=== PATIENT | female | born 1955 | race Caucasian/White ===

== ENCOUNTER 2016-10-05 22:00 | Emergency (ER) | payer BC ==
[2016-10-05] MEDS ORDERED: Sodium Chloride 0.9% 10 ML Syringe FLUSH PRN (22:04)
[2016-10-05] MEDS ORDERED: Sodium Chloride 0.9% 1,000 ML IV SCH (22:15)
[2016-10-05] MEDS ORDERED: Pantoprazole 40 MG Vial IVPUSH ONE (22:15)
[2016-10-05] MEDS ORDERED: HYDROmorphone 2 MG/ML SDV IVPUSH ONE (23:12)
[2016-10-05] MEDS ORDERED: Ondansetron 4 MG/2 ML SDV IVPUSH ONE (23:13)
[2016-10-06] MEDS ORDERED: HYDROmorphone 2 MG/ML SDV IVPUSH ONE (00:04)
[2016-10-06] MEDS ORDERED: Ketorolac 30 MG/ML SDV IVPUSH ONE (00:05)
[2016-10-06] MEDS ORDERED: Sodium Chloride 0.9% 1,000 ML IV SCH (00:15)
[2016-10-06] MEDS ORDERED: Iopamidol 755 Mg/ML 100 ML Bottle IV SCH (00:45)
--- NOTE | 2016-10-06 01:55 | ER ---
DATE SEEN: 10/05/2016 TIME SEEN: 2200 hours. REASON FOR VISIT: Diarrhea. HISTORY OF PRESENT ILLNESS: This is a 61-year-old female complaining of diarrhea since this morning associated with abdominal cramps and bright red blood per rectum. The started afterwards. Denies fever or chills. PAST MEDICAL HISTORY: 1. Migraine headaches. 2. Hypertension. 3. GERD. SOCIAL HISTORY: Does not drink alcohol or use drugs. REVIEW OF SYSTEMS: No fever, nausea, chest pain, or shortness of breath. ALLERGIES: None. PHYSICAL EXAMINATION: GENERAL: Nontoxic in appearance. VITAL SIGNS: Blood pressure 150/99, temperature 99.4. ENT: Negative. CHEST: Clear. ABDOMEN: Soft, with minimal tenderness to palpation. No rebound or rigidity. RECTAL EXAM: No stool in the rectum. No visible blood, masses, or lesions. LABORATORY DATA: White cell count 17.8, normal platelet count. INR 1.0, sodium 134, and glucose 155. IMPRESSION: 1. Bright red blood per rectum. 2. Abdominal cramps. PLAN: 1 L of normal saline, 80 mg of IV Protonix, 8 mg of Zofran, and 1 mg of Dilaudid were given over the course of an hour and a half. The patient went to the bathroom, but only passed air. I discharged her home to see Dr. Gonzales tomorrow. /[id number] SUGAR/ALCIRA
[2016-10-06 02:33] VITALS: BP 142/86
--- NOTE | 2016-10-06 05:19 | ER ---
DATE SEEN: 10/05/2016 ADDENDUM: ED COURSE: The patient still complained of abdominal cramps and pain even after treatment with IV Dilaudid. I gave her an extra 1 mg of Dilaudid and 30 mg of IV Toradol. She had one bloody stool in the emergency room, but her vital signs remained stable. I ordered for a CT of the abdomen and pelvis with contrast showed some diverticular disease, and colitis, but no obstruction and no signs of diverticulitis. She felt better and I discharged her home at about 0200 hours with strict instructions to be seen later this morning by Dr. Gonzales for strong consideration of C-scope. /[id number] SUGAR/ALCIRA
== END 2016-10-06 02:20 | disposition home or self-care (01) ==
LOC: FB.ED 22:00
DX: K52.9 Noninfective gastroenteritis and colitis, unspecified (principal); K57.91 Diverticulosis of intestine, part unspecified, without perforation or abscess with bleeding; G43.909 Migraine, unspecified, not intractable, without status migrainosus; I10 Essential (primary) hypertension; K21.9 Gastro-esophageal reflux disease without esophagitis
CPT/HCPCS: 36415; 74177; 80053; 82272; 83630; 85025; 85610; 86850; 86900; 86901; 87015; 87045; 87046; 87338; 87899; 96361; 96374; 96375; 96376; 99285; C9113; J1170; J1885; J2405; J7040; J7050; Q9967

== ENCOUNTER 2018-01-06 10:36 | Day surgery (SDC) | payer BC ==
[~2018-01-06 10:36] MED LIST: Lactated Ringers 1,000 ML IV SCH; Sodium Chloride 0.9% 10 ML Syringe FLUSH PRN
[2018-01-06] MEDS ORDERED: Propofol 200 MG/20 ML SDV IV ONE (11:30)
[2018-01-06] MEDS ORDERED: fentaNYL 100 MCG/2 ML SDV IV ONE (11:30)
[2018-01-06] MEDS ORDERED: Midazolam 1 MG/ML 2 ML SDV IV ONE (11:30)
--- NOTE | 2018-01-06 11:51 | PCM.OPNOTE ---
- General Post-Op/Procedure Note Date of Surgery/Procedure: 01/06/18 Operative Procedure(s): egd with bx Findings: gastritis esophagitis Pre Op Diagnosis: hx of gerd dypshagia Post-Op Diagnosis: gastritis esophagitis Anesthesia Technique: [facility] [place] Primary Surgeon: Franco Borjas Anesthesia Provider: Aldo Vidal Pathology: stomach and esophagus Complications: None Condition: Good Free Text/Narrative:: see dictation
[2018-01-06 13:37] VITALS: BP 116/80
--- NOTE | 2018-01-06 14:40 | OR ---
DATE OF OPERATION: 01/06/2018 SURGEON: Franco Borjas MD PROCEDURES PERFORMED: EGD with cold forceps biopsy. PREOPERATIVE DIAGNOSES: Personal history of dysphagia and reflux. POSTOPERATIVE DIAGNOSES: 1. Gastritis. 2. Mild esophagitis. INDICATIONS FOR PROCEDURE: This is a 62-year-old white female who is referred with a history of some swallowing issues. She was offered and accepted an EGD. DESCRIPTION OF PROCEDURE: After an excellent IV sedation was administered, the bite block was inserted. Flexible endoscope was passed without difficulty down the patient's esophagus and into the stomach. The stomach was insufflated. The scope was passed through the pylorus, to the second portion of the duodenum, and slowly withdrawn. The following findings were noted. Duodenum was unremarkable. Stomach demonstrated mild gastritis and biopsies were taken. GE junction measured at 40 cm. Distal esophagus, mild erythema, otherwise unremarkable. The stomach was deflated. The scope was removed. Biopsies were taken of the esophagus and the stomach. /[id number] ELMER/ALCIRA
== END 2018-01-06 12:34 | disposition home or self-care (01) ==
LOC: FB.SDS 10:36
PROVIDERS: ATTEND Surgery
DX: K29.50 Unspecified chronic gastritis without bleeding (principal); K20.9 Esophagitis, unspecified; E03.9 Hypothyroidism, unspecified; M19.049 Primary osteoarthritis, unspecified hand; M79.7 Fibromyalgia; N39.46 Mixed incontinence; J45.909 Unspecified asthma, uncomplicated; F41.9 Anxiety disorder, unspecified; F33.9 Major depressive disorder, recurrent, unspecified; Z79.899 Other long term (current) drug therapy; Z88.1 Allergy status to other antibiotic agents; Z87.891 Personal history of nicotine dependence
CPT/HCPCS: 43239; J2250; J2704; J3010; J7120; 88305; 88342

== ENCOUNTER 2018-08-25 07:04 | Emergency (ER) | payer BC ==
[2018-08-25] MEDS ORDERED: Ketorolac 30 MG/ML SDV IM ONE (07:38)
[2018-08-25] MEDS ORDERED: hydrOXYzine HCl 50 MG/ML SDV IM ONE (07:39)
--- NOTE | 2018-08-25 07:45 | EDM.PDOC ---
ED HPI GENERAL MEDICAL PROBLEM - General Chief Complaint: Headache Stated Complaint: HEAD ACHE Time Seen by Provider: 08/25/18 07:25 Source of Information: Reports: Patient, Old Records History Limitations: Reports: No Limitations - History of Present Illness INITIAL COMMENTS - FREE TEXT/NARRATIVE: Violet comes to [facility] ED with a migraine headache, onset this early am. There is retro-orbital pain that is sharp and throbbing, some light sensitivity, achiness in the neck, nausea, and malaise. She has a PMH of migraine headache, although control has been good over the past 2 years while taking propanolol. Occipital Headache Pain Score (Numeric/FACES): 7 - Related Data Allergies Allergy/AdvReac Type Severity Reaction Status Date / Time No Known Allergies Allergy Verified 08/25/18 08:19 Home Meds: Home Meds Acetaminophen [Tylenol] 325 mg PO ASDIRECTED PRN 11/06/16 [History] Albuterol [Ventolin HFA] 2 puff INH Q4H PRN 11/06/16 [History] Aspirin [Adult Low Dose Aspirin EC] 81 mg PO DAILY 11/06/16 [History] Gabapentin [Neurontin] 300 cap PO ASDIRECTED 11/06/16 [History] Levothyroxine 112 mcg PO ACBREAKFAST 11/06/16 [History] Omeprazole 20 mg PO DAILY 11/06/16 [History] Propranolol [Inderal LA] 180 mg PO BEDTIME 11/06/16 [History] Rizatriptan [Maxalt MOLDED PARTS INSPECTOR] 10 mg PO Q2H PRN MDD 2 11/06/16 [History] Escitalopram [Lexapro] 30 mg PO BEDTIME tablet 04/26/17 [Rx] Sulfamethoxazole/Trimethoprim [Bactrim Ds Tablet] 1 tab PO MOWEFR 08/25/18 [ History] Venlafaxine HCl [Venlafaxine ER] 150 mg PO DAILY 08/25/18 [History] predniSONE [Prednisone] 30 mg PO DAILY 08/25/18 [History] Past Medical History HEENT History: Reports: Other (See Below) Other HEENT History: meibomian gland disease and pinguecula Cardiovascular History: Reports: None, High Cholesterol Respiratory History: Reports: Asthma, Other (See Below) 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: 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 Gastrointestinal History: Reports: Gastritis, GERD, PUD, Other (See Below) Other Gastrointestinal History: gastroduodenitis Genitourinary History: Reports: Renal Calculus, Urinary Incontinence, UTI, Recurrent BODY ARTIST History: Reports: , Other (See Below) Other BODY ARTIST History: OVARIAN CYST REMOVAL Musculoskeletal History: Reports: Arthritis, Back Pain, Chronic, Fibromyalgia, Osteoarthritis Other Musculoskeletal History: hand Neurological History: Reports: Migraines, Vertigo, Other (See Below) Other Neuro History: LEFT FRONTAL LOBE BRAIN LESION Psychiatric History: Reports: Anxiety, Depression Endocrine/Metabolic History: Reports: Hypothyroidism, Obesity/BMI 30+ Hematologic History: Reports: None Immunologic History: Reports: None Oncologic (Cancer) History: Reports: None Dermatologic History: Reports: None - Infectious Disease History Infectious Disease History: Reports: Measles - Past Surgical History Head Surgeries/Procedures: Reports: None HEENT Surgical History: Reports: Other (See Below) Other HEENT Surgeries/Procedures: pterygium ptosis Cardiovascular Surgical History: Reports: None, Coronary Artery Bypass, Coronary Artery Stent Respiratory Surgical History: Reports: None GI Surgical History: Reports: Appendectomy, Cholecystectomy, Colonoscopy Female Surgical History: Reports: Cystoscopy, Lithotripsy/ESWL, Tubal Ligation, Ureteral Stent Neurological Surgical History: Reports: Other (See Below) Other Neurological Surgeries/Procedures: SPINE SURGERY Musculoskeletal Surgical History: Reports: Arthroscopic Knee, Arthroscopic Procedure, Shoulder Surgery Other Musculoskeletal Surgeries/Procedures:: left knee, foot surgery, spinal surgery, L PERONEOUS BREVIS TENDON REPAIR Oncologic Surgical History: Reports: None Dermatological Surgical History: Reports: None Social & Family History - Family History Family Medical History: Noncontributory Cardiac: Reports: High Cholesterol, [place] - Caffeine Use Caffeine Use: Reports: None Caffeine Use Comment: 1 soda every 2 weeks ED ROS GENERAL - Review of Systems Review Of Systems: See Below Constitutional: Reports: Malaise, Decreased Appetite HEENT: Reports: Eye Pain (retro-orbital) Respiratory: Reports: No Symptoms Cardiovascular: Reports: No Symptoms Endocrine: Reports: No Symptoms GI/Abdominal: Reports: Decreased Appetite, Nausea : Reports: No Symptoms Musculoskeletal: Reports: Neck Pain Skin: Reports: No Symptoms Neurological: Reports: Headache Psychiatric: Reports: No Symptoms Hematologic/Lymphatic: Reports: No Symptoms Immunologic: Reports: No Symptoms - Physical Exam Exam: See Below Exam Limited By: No Limitations General Appearance: Alert, WD/WN, Anxious, Mild Distress, Obese Eye Exam: Bilateral Eye: EOMI, Normal Inspection, PERRL Ears: Normal External Exam, Normal TMs Nose: Normal Inspection Throat/Mouth: Normal Inspection, Normal Lips, Normal Oropharynx, Normal Voice, No Airway Compromise Head Exam: Normocephalic Neck: Normal Inspection, Supple, Non-Tender, Full Range of Motion Respiratory/Chest: Lungs Clear, Normal Breath Sounds, Chest Non-Tender Cardiovascular: Normal Peripheral Pulses, Regular Rate, Rhythm, No Edema, No Murmur GI/Abdominal: Normal Bowel Sounds, Soft, Non-Tender, No Organomegaly, No Distention, No Mass (Female) Exam: Deferred Rectal (Female) Exam: Deferred Neuro Exam (Abbreviated): Alert, Oriented, CN II-XII Intact, Normal Cognition, No Motor/Sensory Deficits Back Exam: Normal Inspection Extremities: Normal Inspection Psychiatric: Normal Affect, Anxious Skin Exam: Warm, Dry, Intact, Normal Color Course - Vital Signs Text/Narrative:: Following assessment, I administered Toradol 30 mg IM and Vistaril 50 mg IM. Patient tolerated well. Last Recorded V/S: Last Vital Signs Temp 36.6 C 08/25/18 07:35 Pulse Resp 17 08/25/18 07:35 BP 149/101 H 08/25/18 07:50 Pulse Ox 94 L 08/25/18 07:35 - Orders/Labs/Meds Meds: Medications Discontinued Medications Generic Name Dose Route Start Last Admin Trade Name Freq PRN Reason Stop Dose Admin Hydroxyzine HCl 50 mg 08/25/18 07:39 08/25/18 07:51 Vistaril IM 08/25/18 07:40 50 mg ONETIME ONE Administration Ketorolac Tromethamine 30 mg 08/25/18 07:38 08/25/18 07:52 Toradol IM 08/25/18 07:39 30 mg ONETIME ONE Administration Departure - Departure Time of Disposition: 07:55 Disposition: Home, Self-Care 01 Condition: Fair Clinical Impression: Migraine - Discharge Information *PRESCRIPTION DRUG MONITORING PROGRAM REVIEWED*: Not Applicable *COPY OF PRESCRIPTION DRUG MONITORING REPORT IN PATIENT RICCO: Not Applicable Referrals: Clyde Gonzales MD [Primary Care Provider] - Forms: ED Department Discharge - Problem List & Annotations (1) Migraine SNOMED Code(s): 68828540 Code(s): G43.909 - MIGRAINE, UNSP, NOT INTRACTABLE, WITHOUT STATUS MIGRAINOSUS Status: Acute Onset Date: 12/25/13 Annotation/Comment:: Violet will return home and continue maintenance meds. - Problem List Review Problem List Initiated/Reviewed/Updated: Yes - Assessment/Plan Plan: Follow up with neurologist next Thursday as earlier scheduled.
[2018-08-25 08:18] VITALS: BP 149/101
== END 2018-08-25 07:54 | disposition home or self-care (01) ==
LOC: FB.ED 07:04
DX: G43.909 Migraine, unspecified, not intractable, without status migrainosus (principal); E78.00 Pure hypercholesterolemia, unspecified; J45.909 Unspecified asthma, uncomplicated; F41.9 Anxiety disorder, unspecified; F32.9 Major depressive disorder, single episode, unspecified; E03.9 Hypothyroidism, unspecified; Z79.82 Long term (current) use of aspirin; Z79.899 Other long term (current) drug therapy
CPT/HCPCS: 96372; 99283; J1885; J3410

== ENCOUNTER 2019-06-20 12:23 | Emergency (ER) | payer BC ==
[2019-06-20] MEDS ORDERED: Sodium Chloride 0.9% 10 ML Syringe FLUSH PRN (12:35)
[2019-06-20] MEDS ORDERED: Meclizine 25 MG Tab PO ONE (12:38)
[2019-06-20] MEDS ORDERED: Aspirin 81 MG Tab.Chew PO ONE (13:39)
[2019-06-20] MEDS ORDERED: Sodium Chloride 0.9% 1,000 ML IV SCH (13:45)
--- NOTE | 2019-06-20 13:45 | EDM.PDOC ---
ED HPI GENERAL MEDICAL PROBLEM - General Chief Complaint: Neuro Symptoms/Deficits Stated Complaint: POSSIBLE STROKE Time Seen by Provider: 06/20/19 12:30 Source of Information: Reports: Patient, Family History Limitations: Reports: No Limitations - History of Present Illness INITIAL COMMENTS - FREE TEXT/NARRATIVE: Patient presented to the ED because of dizziness,left facial droop,drooling and left sided body weakness which started on Thursday at 0900. The above symptoms progressively got worse during the weekend. she also c/o headache 10/08, denies any N/V chest pain. - Related Data Allergies Allergy/AdvReac Type Severity Reaction Status Date / Time No Known Allergies Allergy Verified 08/25/18 08:19 Home Meds: Home Meds Acetaminophen [Tylenol] 325 mg PO ASDIRECTED PRN 11/06/16 [History] Albuterol [Ventolin HFA] 2 puff INH Q4H PRN 11/06/16 [History] Aspirin [Adult Low Dose Aspirin EC] 81 mg PO DAILY 11/06/16 [History] Gabapentin [Neurontin] 300 cap PO ASDIRECTED 11/06/16 [History] Levothyroxine 112 mcg PO ACBREAKFAST 11/06/16 [History] Omeprazole 20 mg PO DAILY 11/06/16 [History] Propranolol [Inderal LA] 180 mg PO BEDTIME 11/06/16 [History] Rizatriptan [Maxalt RETAIL TIRE SALES MANAGER] 10 mg PO Q2H PRN MDD 2 11/06/16 [History] Escitalopram [Lexapro] 30 mg PO BEDTIME tablet 04/26/17 [Rx] Sulfamethoxazole/Trimethoprim [Bactrim Ds Tablet] 1 tab PO MOWEFR 08/25/18 [ History] Venlafaxine HCl [Venlafaxine ER] 150 mg PO DAILY 08/25/18 [History] predniSONE [Prednisone] 30 mg PO DAILY 08/25/18 [History] Past Medical History HEENT History: Reports: Other (See Below) Other HEENT History: meibomian gland disease and pinguecula Cardiovascular History: Reports: None, High Cholesterol Respiratory History: Reports: Asthma, Other (See Below) 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: 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 Gastrointestinal History: Reports: Gastritis, GERD, PUD, Other (See Below) Other Gastrointestinal History: gastroduodenitis Genitourinary History: Reports: Renal Calculus, Urinary Incontinence, UTI, Recurrent TRACK SERVICE PERSON History: Reports: , Other (See Below) Other TRACK SERVICE PERSON History: OVARIAN CYST REMOVAL Musculoskeletal History: Reports: Arthritis, Back Pain, Chronic, Fibromyalgia, Osteoarthritis Other Musculoskeletal History: hand Neurological History: Reports: Migraines, Vertigo, Other (See Below) Other Neuro History: LEFT FRONTAL LOBE BRAIN LESION Psychiatric History: Reports: Anxiety, Depression Endocrine/Metabolic History: Reports: Hypothyroidism, Obesity/BMI 30+ Hematologic History: Reports: None Immunologic History: Reports: None Oncologic (Cancer) History: Reports: None Dermatologic History: Reports: None - Infectious Disease History Infectious Disease History: Reports: Measles - Past Surgical History Head Surgeries/Procedures: Reports: None HEENT Surgical History: Reports: Other (See Below) Other HEENT Surgeries/Procedures: pterygium ptosis Cardiovascular Surgical History: Reports: None, Coronary Artery Bypass, Coronary Artery Stent Respiratory Surgical History: Reports: None GI Surgical History: Reports: Appendectomy, Cholecystectomy, Colonoscopy Female Surgical History: Reports: Cystoscopy, Lithotripsy/ESWL, Tubal Ligation, Ureteral Stent Neurological Surgical History: Reports: Other (See Below) Other Neurological Surgeries/Procedures: SPINE SURGERY Musculoskeletal Surgical History: Reports: Arthroscopic Knee, Arthroscopic Procedure, Shoulder Surgery Other Musculoskeletal Surgeries/Procedures:: left knee, foot surgery, spinal surgery, L PERONEOUS BREVIS TENDON REPAIR Oncologic Surgical History: Reports: None Dermatological Surgical History: Reports: None Social & Family History - Family History Family Medical History: Noncontributory Cardiac: Reports: High Cholesterol, [place] - Caffeine Use Caffeine Use: Reports: None Caffeine Use Comment: 1 soda every 2 weeks ED ROS GENERAL - Review of Systems Review Of Systems: See Below Constitutional: Reports: No Symptoms HEENT: Reports: Other (left facial droop) Respiratory: Reports: No Symptoms Cardiovascular: Reports: No Symptoms Endocrine: Reports: No Symptoms GI/Abdominal: Reports: No Symptoms : Reports: No Symptoms Musculoskeletal: Reports: No Symptoms Skin: Reports: No Symptoms Neurological: Reports: Dizziness, Headache, Numbness, Weakness, Change in Speech Psychiatric: Reports: No Symptoms ED EXAM, NEURO - Physical Exam Exam: See Below Exam Limited By: No Limitations General Appearance: Alert, No Apparent Distress Ears: Normal External Exam, Normal Canal Nose: Normal Inspection, Normal Mucosa, No Blood Throat/Mouth: Normal Inspection, Normal Lips Head Exam: Atraumatic, Normocephalic Neck: Normal Inspection Respiratory/Chest: No Respiratory Distress, Lungs Clear, Normal Breath Sounds, No Accessory Muscle Use, Chest Non-Tender Cardiovascular: Normal Peripheral Pulses, Regular Rate, Rhythm, No Edema, No Gallop, No JVD, No Murmur, No Rub GI/Abdominal: Normal Bowel Sounds, Soft, Non-Tender, No Organomegaly, No Distention, No Abnormal Bruit Rectal (Female) Exam: Normal Exam, Normal Rectal Tone Neurological: Alert, Normal Mood/Affect, Oriented x 3, Other (left hemiparesis, left facial droop) Back Exam: Normal Inspection, Full Range of Motion Extremities: Normal Inspection, Normal Range of Motion Psychiatric: Normal Affect Skin Exam: Warm, Dry, Intact Course - Vital Signs Text/Narrative:: labs/EKG/Head CT/CXR was discussed with patient and verbalized full uinderstanding ASA 325 mg po x1 NS 100 ml/hr Neuro consult with Dr Duarte who agreed with the above plan of care. Patient will be transferred to [facility] for further care. - Orders/Labs/Meds Orders: Active Orders 24 hr Category Date Time Status EKG Documentation Completion [RC] ASDIRECTED Care 06/20/19 12:37 Active Chest 1V Frontal [CR] Stat Exams 06/20/19 12:35 Taken Head wo Cont [CT] Stat Exams 06/20/19 12:35 Taken COMPREHENSIVE METABOLIC PN,CMP [CHEM] Stat Lab 06/20/19 12:50 Received INR,PT,PROTHROMBIN TIME [COAG] Stat Lab 06/20/19 12:50 Received PTT,PARTIAL THROMBOPLSTIN TIME [COAG] Stat Lab 06/20/19 12:50 Received Aspirin Med 06/20/19 13:39 Once 324 mg PO ONETIME ONE Sodium Chloride 0.9% @ 100 MLS/HR(1,000ml) Med 06/20/19 13:45 Ordered Sodium Chloride 0.9% [Normal Saline] 1,000 ml IV ASDIRECTED Sodium Chloride 0.9% [Saline Flush] Med 06/20/19 12:35 Active 10 ml FLUSH ASDIRECTED PRN Saline Lock Insert [OM.PC] Routine Oth 06/20/19 12:35 Ordered EKG 12 Lead [EK] Routine Ther 01/20/20 12:35 Ordered Medication Orders Sodium Chloride (Saline Flush) 10 ml FLUSH ASDIRECTED PRN PRN Reason: Keep Vein Open Labs: Laboratory Tests 06/20/19 06/20/19 06/20/19 Range/Units 12:50 12:50 12:50 WBC 13.5 H (4.5-12.0) X10-3/uL RBC 4.51 (3.23-5.20) x10(6)uL Hgb 14.1 (11.5-15.5) g/dL Hct 41.0 (30.0-51.3) % MCV 90.8 (80-96) fL MCH 31.3 (27.7-33.6) pg MCHC 34.4 (32.2-35.4) g/dL RDW 13.4 (11.5-15.5) % Plt Count 341 (125-369) X10(3)uL MPV 7.9 (7.4-10.4) fL Neut % (Auto) 60.6 (46-82) % Lymph % (Auto) 30.4 (13-37) % Titus % (Auto) 6.6 (4-12) % Eos % (Auto) 2 (1.0-5.0) % Baso % (Auto) 1 (0-2) % Neut # (Auto) 8.1 (1.6-8.3) # Lymph # (Auto) 4.1 (0.6-5.0) # Titus # (Auto) 0.9 (0.0-1.3) # Eos # (Auto) 0.3 (0.0-0.8) # Baso # (Auto) 0.1 (0.0-0.2) # Sodium 142 (135-145) mmol/L Potassium 4.1 (3.5-5.3) mmol/L Chloride 103 (100-110) mmol/L Carbon Dioxide 30 (21-32) mmol/L BUN 16 (7-18) mg/dL Creatinine 1.0 (0.55-1.02) mg/dL Est Cr Clr Drug Dosing TNP Estimated GFR (MDRD) 56 L (>60) BUN/Creatinine Ratio 16.0 (9-20) Glucose 128 H (80-116) mg/dL Calcium 8.9 (8.6-10.2) mg/dL Troponin I < 0.017 L (<0.017-0.056) ng/mL Meds: Medications Generic Name Dose Route Start Last Admin Trade Name Freq PRN Reason Stop Dose Admin Sodium Chloride 10 ml 06/20/19 12:35 Saline Flush FLUSH ASDIRECTED PRN Keep Vein Open Discontinued Medications Generic Name Dose Route Start Last Admin Trade Name Freq PRN Reason Stop Dose Admin Meclizine HCl 50 mg 06/20/19 12:38 06/20/19 13:14 Antivert PO 06/20/19 12:39 50 mg ONETIME ONE Administration Departure - Departure Time of Disposition: 13:30 Disposition: DC/Tfer to Acute Hospital 02 Condition: Good Clinical Impression: CVA (cerebral vascular accident) - Discharge Information Referrals: Clyde Gonzales MD [Primary Care Provider] - - My Orders Last 24 Hours: My Active Orders 06/20/19 12:35 Chest 1V Frontal [CR] Stat Head wo Cont [CT] Stat Sodium Chloride 0.9% [Saline Flush] 10 ml FLUSH ASDIRECTED PRN Saline Lock Insert [OM.PC] Routine EKG 12 Lead [EK] Routine 06/20/19 12:37 EKG Documentation Completion [RC] ASDIRECTED 06/20/19 12:50 COMPREHENSIVE METABOLIC PN,CMP [CHEM] Stat INR,PT,PROTHROMBIN TIME [COAG] Stat PTT,PARTIAL THROMBOPLSTIN TIME [COAG] Stat 06/20/19 13:39 Aspirin 324 mg PO ONETIME ONE 06/20/19 13:45 Sodium Chloride 0.9% @ 100 MLS/HR(1,000ml) Sodium Chloride 0.9% [Normal Saline] 1,000 ml IV ASDIRECTED - Assessment/Plan Last 24 Hours: My Active Orders 06/20/19 12:35 Chest 1V Frontal [CR] Stat Head wo Cont [CT] Stat Sodium Chloride 0.9% [Saline Flush] 10 ml FLUSH ASDIRECTED PRN Saline Lock Insert [OM.PC] Routine EKG 12 Lead [EK] Routine 06/20/19 12:37 EKG Documentation Completion [RC] ASDIRECTED 06/20/19 12:50 COMPREHENSIVE METABOLIC PN,CMP [CHEM] Stat INR,PT,PROTHROMBIN TIME [COAG] Stat PTT,PARTIAL THROMBOPLSTIN TIME [COAG] Stat 06/20/19 13:39 Aspirin 324 mg PO ONETIME ONE 06/20/19 13:45 Sodium Chloride 0.9% @ 100 MLS/HR(1,000ml) Sodium Chloride 0.9% [Normal Saline] 1,000 ml IV ASDIRECTED
--- NOTE | 2019-06-20 14:11 | CT ---
INDICATION: Left-sided weakness, facial drooping starting Thursday. CT HEAD WITHOUT CONTRAST: Spiral 3.75 mm axial sections were obtained through the brain with sagittal and coronal reconstructions, 06/20/19, and compared with 08/16/15. It was also compared with previous CT of 12/26/13. Total exam DLP was 1270.76 mGy-cm. The orbits appear to be grossly intact. The paranasal sinuses appear to be well aerated. The mastoid air cells appear well aerated. The cranium appears to be intact. No shift of midline structures or ventricular abnormalities were identified. In the left parietal white matter, extending slightly into the cortex, there is an irregular area of decreased density which is again present and compatible with previous subcortical infarct extending slightly cortical. A new finding is noted in the posterior limb of the right internal capsule where a large area of decreased density is noted. This is felt to be compatible with acute infarct, or at least new compared with 2016. There may also be some areas of relatively minimal decreased density more posteriorly extending into the area of the inferior - temporal horn of the lateral ventricle. These additional areas are best seen on axial image 22. No other abnormal areas of density were identified, except for some additional periventricular abnormalities, one especially that appears to be new in the right frontal lobe, also compatible with subcortical infarct that is new compared with 2016. No bleeding site or hematoma was identified. Calcifications are suggested in the internal carotid artery on the left to a minimal degree. IMPRESSION: 1. New areas of decreased density are noted on the right compared with the previous examination of 2016 and may represent either interval areas of infarct or areas of acute and possibly developing areas of ischemia and infarct. This should be correlated clinically. 2. Old area of encephalomalacia left parietal lobe compatible with previous subcortical/minimally cortical infarct. 3. Tiny area of decreased density in the anterior limb of the left internal capsule could represent an interval lacunar infarct in that area, likely old but is certainly new compared with 2016. 4. A repeat MRI may be helpful to further evaluate these areas of decreased density when clinically possible. Report was called to Dr. Davenport at 13:18 hours. [facility]
--- NOTE | 2019-06-20 14:13 | CR ---
INDICATION: Left-sided weakness. CHEST, 1 VIEW: AP, upright portable view of the chest was obtained 06/20/19 and compared with 10/17/13 and 04/25/17. Evidence of exogenous obesity is again noted. The heart appears somewhat enlarged. The aorta is tortuous with minimal calcification in the arch. Overlying EKG leads are noted. No definite active infiltrate or effusion was identified. IMPRESSION: No acute process. MTDD
[2019-06-20 20:57] VITALS: BP 123/63; PULSE 66
== END 2019-06-20 15:20 ==
LOC: FB.ED 12:23
DX: I63.9 Cerebral infarction, unspecified (principal); F41.9 Anxiety disorder, unspecified; F32.9 Major depressive disorder, single episode, unspecified; K21.9 Gastro-esophageal reflux disease without esophagitis; J45.909 Unspecified asthma, uncomplicated; E03.9 Hypothyroidism, unspecified; E78.00 Pure hypercholesterolemia, unspecified; M19.90 Unspecified osteoarthritis, unspecified site; Z79.82 Long term (current) use of aspirin; Z79.899 Other long term (current) drug therapy
CPT/HCPCS: 36415; 70450; 71045; 80053; 84484; 85025; 85610; 85730; 93005; 96360; 96361; 99285; A9270; J7030

== ENCOUNTER 2020-03-26 07:43 | Day surgery (SDC) | payer BC ==
[2020-03-26] MEDS ORDERED: Propofol 200 MG/20 ML SDV IV ONE (07:44)
[2020-03-26] MEDS ORDERED: Lidocaine 2% 5 ML SDV INJECT ONE (07:44)
--- NOTE | 2020-03-26 09:50 | PCM.OPNOTE ---
- General Post-Op/Procedure Note Date of Surgery/Procedure: 03/26/20 Operative Procedure(s): c scope with biopsy Findings: ascending colon polyp descending colon polyp x2 sigmoid diverticulosis Pre Op Diagnosis: personal hx of colon polyps Post-Op Diagnosis: ascending colon polyp. descending colon polyp x2. sigmoid diverticulosis Anesthesia Technique: MAC Primary Surgeon: Franco Borjas Anesthesia Provider: Aldo Vidal Pathology: ascending colon polyp descending colon polyp x2 Complications: None Condition: Good Free Text/Narrative:: see dictation
[2020-03-26 12:53] VITALS: BP 148/68; PULSE 60
--- NOTE | 2020-03-26 15:00 | OR ---
DATE OF OPERATION: 03/26/2020 SURGEON: Franco Borjas MD PROCEDURE PERFORMED: Colonoscopy with cold forceps biopsy. PREOPERATIVE DIAGNOSIS: Personal history of colon polyps. POSTOPERATIVE DIAGNOSES: 1. Ascending colon polyp. 2. Descending colon polyp x2. INDICATIONS FOR PROCEDURE: This is a 65-year-old white female who presents for followup screening colonoscopy. She has a personal history of colon polyps. Last scope was 5 years ago. DESCRIPTION OF PROCEDURE: After an excellent IV sedation was administered, digital rectal exam was performed. No marked abnormality was noted. Flexible colonoscope was inserted and advanced to the cecum. The prep was excellent. The following findings were noted: Ascending colon, midway up, a small polypoid lesion, approximately 3 mm, biopsied with cold biopsy forceps and sent for permanent. Transverse colon was unremarkable. Descending colon, 2 small polypoid lesions, mid descending colon, within 1 cm of each other, biopsied and submitted in 1 container. Sigmoid demonstrated some sigmoid diverticulosis. Rectum and anus unremarkable. Results will be sent to the patient via letter. /[id number] /ALCIRA
== END 2020-03-26 10:53 | disposition home or self-care (01) ==
LOC: FB.SDS 07:43
PROVIDERS: ATTEND Surgery
DX: Z12.11 Encounter for screening for malignant neoplasm of colon (principal); D12.2 Benign neoplasm of ascending colon; K57.30 Diverticulosis of large intestine without perforation or abscess without bleeding; E03.9 Hypothyroidism, unspecified; F33.1 Major depressive disorder, recurrent, moderate; F41.1 Generalized anxiety disorder; J45.20 Mild intermittent asthma, uncomplicated; E66.09 Other obesity due to excess calories; Z90.89 Acquired absence of other organs; Z98.890 Other specified postprocedural states; Z79.899 Other long term (current) drug therapy; Z88.8 Allergy status to other drugs, medicaments and biological substances; Z68.35 Body mass index [BMI] 35.0-35.9, adult
CPT/HCPCS: 00811; 45380; 88305; J2001; J2704; J7120

== ENCOUNTER 2020-12-23 09:31 | Emergency (ER) | payer MEDICARE, OTHER ==
[2020-12-23] MEDS: Sodium Chloride 0.9% 1,000 ML IV ONE ×2 (10:15→11:50)
--- NOTE | 2020-12-23 10:19 | EDM.PDOC ---
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, was in the shade, ate her usual supper, went to bed at 10p and felt fine then awoke at 2a with cramping in her lower mid abd and had multiple brown loose BMs, at 5a she began to have multiple dark red BMs that have continued she felt sweaty and lightheaded, no DAV[place], no CP, some N, did request something for pain now is with her has RA, on azathioprine, had gotten monthly infusions for RA altho not now, not on prednisone currently 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 is Dr Cook at [facility] Abdomen Pain Score (Numeric/FACES): 9 Headache Pain Score (Numeric/FACES): 6 - Related Data Allergies Allergy/AdvReac Type Severity Reaction Status Date / Time bacitracin Allergy Other Verified 12/23/20 11:35 Home Meds: Home Meds Propranolol [Inderal LA] 240 mg PO DAILY 11/06/16 [History] DULoxetine HCl [Duloxetine HCl] 60 mg PO DAILY 06/20/19 [History] Doxepin [SINEquan] 50 mg PO BEDTIME 06/20/19 [History] Mirtazapine 7.5 mg PO BEDTIME 06/20/19 [History] Rosuvastatin [Crestor] 40 mg PO DAILY 03/22/20 [History] Temazepam 30 mg PO BEDTIME PRN 03/22/20 [History] azaTHIOprine [Azathioprine] 50 mg PO DAILY 03/22/20 [History] traMADol [Ultram] 50 mg PO Q6HR PRN 03/22/20 [History] Furosemide [Lasix] 20 mg PO DAILY 12/23/20 [History] Levothyroxine [Synthroid] 100 mcg PO DAILY 12/23/20 [History] Oxybutynin 5 mg PO BID 12/23/20 [History] Pramipexole [Mirapex] 0.5 mg PO BEDTIME 12/23/20 [History] lisinopriL [Lisinopril] 10 mg PO DAILY 12/23/20 [History] Past Medical History HEENT History: Reports: Impaired Vision, Other (See Below) Other HEENT History: meibomian gland disease and pinguecula Cardiovascular History: Reports: None, High Cholesterol Respiratory History: Reports: Asthma, Other (See Below) 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: being worked up by assistant laboratory director Gastrointestinal History: Reports: Gastritis, GERD, PUD, Other (See Below) Other Gastrointestinal History: gastroduodenitis, ESOPHAGITIS Genitourinary History: Reports: Renal Calculus, Urinary Incontinence, UTI, Recurrent, Other (See Below) Other Genitourinary History: OAB PLATE SHOP HELPER History: Reports: , Other (See Below) Other PLATE SHOP HELPER History: OVARIAN CYST REMOVAL Musculoskeletal History: Reports: Arthritis, Back Pain, Chronic, Fibromyalgia, Osteoarthritis Other Musculoskeletal History: RESTLESS LEGS SYNDROME, PERONEAL TENDONOSIS, LEFT SIDED WEAKNESS POST STROKE Neurological History: Reports: CVA, Migraines, Speech Problems, Vertigo, Other (See Below) Other Neuro History: LEFT FRONTAL LOBE BRAIN LESION Psychiatric History: Reports: Anxiety, Depression Endocrine/Metabolic History: Reports: Hypothyroidism, Obesity/BMI 30+ Hematologic History: Reports: None Immunologic History: Reports: None Oncologic (Cancer) History: Reports: None Dermatologic History: Reports: None - Infectious Disease History Infectious Disease History: Reports: Measles - Past Surgical History Head Surgeries/Procedures: Reports: None HEENT Surgical History: Reports: Other (See Below) Other HEENT Surgeries/Procedures: pterygium ptosis Cardiovascular Surgical History: Reports: None, Coronary Artery Bypass, Coronary Artery Stent, Other (See Below) Other Cardiovascular Surgeries/Procedures: HAD A LOOP RECORDER Respiratory Surgical History: Reports: None GI Surgical History: Reports: Appendectomy, Cholecystectomy, Colonoscopy Other GI Surgeries/Procedures: MANOMETRY ESOPHAGEAL Female Surgical History: Reports: Cystoscopy, Lithotripsy/ESWL, Tubal Ligation, Ureteral Stent, Other (See Below) Other Female Surgeries/Procedures: OVARIAN CYST Neurological Surgical History: Reports: Other (See Below) Other Neurological Surgeries/Procedures: SPINE SURGERY Musculoskeletal Surgical History: Reports: Arthroscopic Knee, Arthroscopic Procedure, Shoulder Surgery Other Musculoskeletal Surgeries/Procedures:: left knee, foot surgery, spinal surgery, L PERONEOUS BREVIS TENDON REPAIR, SHOULDER SURGERY Oncologic Surgical History: Reports: None Dermatological Surgical History: Reports: None Social & Family History - Family History Family Medical History: No Pertinent Family History Cardiac: Reports: High Cholesterol, NM - Caffeine Use Caffeine Use: Reports: None Caffeine Use Comment: 1 soda every 2 weeks ED ROS GENERAL - Review of Systems Review Of Systems: See Below Constitutional: Reports: No Symptoms. Denies: Fever HEENT: Reports: No Symptoms Respiratory: Reports: No Symptoms Cardiovascular: Reports: No Symptoms Endocrine: Reports: No Symptoms GI/Abdominal: Reports: Abdominal Pain, Hematochezia, Nausea. Denies: Vomiting : Reports: No Symptoms Musculoskeletal: Reports: No Symptoms Skin: Reports: No Symptoms Neurological: Reports: Dizziness Psychiatric: Reports: No Symptoms Hematologic/Lymphatic: Reports: No Symptoms Immunologic: Reports: No Symptoms ED EXAM, GI/ABD - Physical Exam Exam: See Below Exam Limited By: No Limitations General Appearance: Alert, WD/WN, Other (alert, pleasant, good eye contact, normal speech, supine on bed, indicates suprapubic area as location of pain) Ears: Hearing Grossly Normal Nose: Normal Inspection Throat/Mouth: Normal Inspection, Normal Lips, Normal Teeth, Normal Voice, No Airway Compromise Head: Atraumatic, Normocephalic Neck: Normal Inspection, Supple, Non-Tender, Full Range of Motion Respiratory/Chest: No Respiratory Distress, Lungs Clear, Normal Breath Sounds, No Accessory Muscle Use Cardiovascular: Regular Rate, Rhythm, No Edema, Other (2/6 JAIME at LSB, no tachy) GI/Abdominal Exam: Normal Bowel Sounds, Soft, No Organomegaly, No Distention, Other (1+ tender in suprapubic area, no guard/rebound) Back Exam: Normal Inspection, Full Range of Motion. No: CVA Tenderness (R) Extremities: Normal Inspection, Non-Tender, No Pedal Edema, Other Neurological: Alert, Oriented, CN II-XII Intact, Normal Cognition, No Motor/Sensory Deficits Psychiatric: Normal Affect, Normal Mood Skin Exam: Warm, Dry, Intact, Normal Color, No Rash, Other (dec'd turgor UEs, no tenting) Lymphatic: No Adenopathy #1 Interpretation EKG Date: 12/23/20 Time: 10:31 Rhythm: NSR Rate (Beats/Min): 74 Mead: Normal P-Wave: Present QRS: Normal ST-T: Normal QT: Normal Comparison: No Change (no acute ST changes, no change c/w 1-20-20) Course - Vital Signs Last Recorded V/S: Last Vital Signs Temp 37.0 C 12/23/20 09:46 Pulse 76 12/23/20 09:46 Resp 20 12/23/20 09:46 BP 189/98 H 12/23/20 09:46 Pulse Ox 93 L 12/23/20 09:46 - Orders/Labs/Meds Orders: Active Orders 24 hr Category Date Time Status EKG Documentation Completion [RC] ASDIRECTED Care 12/23/20 09:59 Active Abdomen Pelvis w Cont [CT] Stat Exams 12/23/20 10:04 Taken Chest 2V [CR] Stat Exams 12/23/20 11:17 Ordered CULTURE BLOOD [BC] Urgent Lab 12/23/20 10:20 Received CULTURE BLOOD [BC] Urgent Lab 12/23/20 10:30 Received CULTURE URINE [RM] Stat Lab 12/23/20 11:15 Received Nitroglycerin 25 MG in D5W @ 10 MCG/MIN(250ml) Premix Med 12/23/20 12:45 Ordered Nitroglycerin/D5W [Nitroglycerin 25 MG/D5W 250 ML] 25 mg in 250 ml IV TITRATE Piperacillin/Tazobactam [Zosyn] 4.5 gm Med 12/23/20 13:07 Ordered Sodium Chloride 0.9% [Normal Saline] 100 ml IV ONETIME Blood Culture x2 Reflex Set [OM.PC] Urgent Oth 12/23/20 10:03 Ordered EKG 12 Lead [EK] Routine Ther 12/23/20 09:59 Ordered Medication Orders Nitroglycerin/Dextrose (Nitroglycerin 25 Mg/D5w 250 Ml) 25 mg in 250 mls @ 6 mls/hr IV TITRATE KEYONNA; Protocol Last Titration: 12/23/20 13:03 Dose: 5 mcg/min, 3 mls/hr Documented by: Piperacillin Sod/Tazobactam (Sod 4.5 gm/ Sodium Chloride) 100 mls @ 200 mls/hr IV ONETIME ONE Stop: 12/23/20 13:36 Labs: Laboratory Tests 12/23/20 12/23/20 12/23/20 Range/Units 10:20 10:20 10:30 WBC 11.4 H (3.0-10.3) x10-3/uL RBC 3.92 (3.60-5.20) x10(6)uL Hgb 12.8 (11.4-15.5) g/dL Hct 38.1 (34.2-48.2) % MCV 97.0 (76.7-100.5) fL MCH 32.6 (23.9-33.9) pg MCHC 33.6 (31.9-34.8) g/dL RDW 14.9 (12.3-16.5) % Plt Count 255 (151-488) x10(3)uL MPV 6.8 L (7.1-12.4) fL Neut % (Auto) 83.0 H (30.8-76.2) % Lymph % (Auto) 9.9 L (18.4-52.1) % [place] % (Auto) 5.8 (4.4-15.7) % Eos % (Auto) 0.6 (0.6-8.1) % Baso % (Auto) 0.7 (0.2-1.5) % Neut # (Auto) 9.5 H (1.5-6.3) x10-3/uL Lymph # (Auto) 1.1 (1.0-4.4) x10-3/uL [place] # (Auto) 0.7 (0.3-1.0) x10-3/uL Eos # (Auto) 0.1 (0.0-0.8) x10-3/uL Baso # (Auto) 0.1 (0.0-0.1) x10-3/uL PT 9.9 (9.0-11.1) sec INR 0.91 L (1.00-1.24) Sodium 140 (135-145) mmol/L Potassium 4.4 (3.5-5.3) mmol/L Chloride 101 (100-110) mmol/L Carbon Dioxide 25 (21-32) mmol/L BUN 21 H (7-18) mg/dL Creatinine 1.5 H (0.55-1.02) mg/dL Est Cr Clr Drug Dosing 32.29 mL/min Estimated GFR (MDRD) 35 L (>60) BUN/Creatinine Ratio 14.0 (9-20) Glucose 231 H D (80-116) mg/dL Hemoglobin A1c (<5.7) % Lactic Acid (0.4-2.0) mmol/L Calcium 9.5 (8.6-10.2) mg/dL Total Bilirubin 0.7 (0.1-1.3) mg/dL AST 23 D (5-25) IU/L ALT 24 (12-36) U/L Alkaline Phosphatase 169 H (56-112) IU/L Troponin I (4.0-60.3) pg/mL C-Reactive Protein (0.5-0.9) mg/dL Total Protein 7.4 (6.0-8.0) g/dL Albumin 3.7 (3.2-4.6) g/dL Globulin 3.7 g/dL Albumin/Globulin Ratio 1.0 Urine Color (YELLOW) Urine Appearance (CLEAR) Urine pH (5.0-6.5) Ur Specific Garvin (1.010-1.025) Urine Protein (NEGATIVE) mg/dL Urine Glucose (UA) (NORMAL) mg/dL Urine Ketones (NEGATIVE) mg/dL Urine Occult Blood (NEGATIVE) Urine Nitrite (NEGATIVE) Urine Bilirubin (NEGATIVE) Urine Urobilinogen (NEGATIVE) mg/dL Ur Leukocyte Esterase (NEGATIVE) U Hyaline Cast (Auto) (NS) Urine RBC (0-5) Urine WBC (0-5) Ur Squamous Epith Cells (NS,R,O) Calcium Oxalate Crystal (NS) Urine Bacteria (NS) 12/23/20 12/23/20 12/23/20 Range/Units 10:30 10:30 10:30 WBC (3.0-10.3) x10-3/uL RBC (3.60-5.20) x10(6)uL Hgb (11.4-15.5) g/dL Hct (34.2-48.2) % MCV (76.7-100.5) fL MCH (23.9-33.9) pg MCHC (31.9-34.8) g/dL RDW (12.3-16.5) % Plt Count (151-488) x10(3)uL MPV (7.1-12.4) fL Neut % (Auto) (30.8-76.2) % Lymph % (Auto) (18.4-52.1) % [place] % (Auto) (4.4-15.7) % Eos % (Auto) (0.6-8.1) % Baso % (Auto) (0.2-1.5) % Neut # (Auto) (1.5-6.3) x10-3/uL Lymph # (Auto) (1.0-4.4) x10-3/uL [place] # (Auto) (0.3-1.0) x10-3/uL Eos # (Auto) (0.0-0.8) x10-3/uL Baso # (Auto) (0.0-0.1) x10-3/uL PT (9.0-11.1) sec INR (1.00-1.24) Sodium (135-145) mmol/L Potassium (3.5-5.3) mmol/L Chloride (100-110) mmol/L Carbon Dioxide (21-32) mmol/L BUN (7-18) mg/dL Creatinine (0.55-1.02) mg/dL Est Cr Clr Drug Dosing mL/min Estimated GFR (MDRD) (>60) BUN/Creatinine Ratio (9-20) Glucose (80-116) mg/dL Hemoglobin A1c 6.7 H (<5.7) % Lactic Acid 2.8 H* (0.4-2.0) mmol/L Calcium (8.6-10.2) mg/dL Total Bilirubin (0.1-1.3) mg/dL AST (5-25) IU/L ALT (12-36) U/L Alkaline Phosphatase (56-112) IU/L Troponin I < 4.0 L (4.0-60.3) pg/mL C-Reactive Protein 1.0 H (0.5-0.9) mg/dL Total Protein (6.0-8.0) g/dL Albumin (3.2-4.6) g/dL Globulin g/dL Albumin/Globulin Ratio Urine Color (YELLOW) Urine Appearance (CLEAR) Urine pH (5.0-6.5) Ur Specific Garvin (1.010-1.025) Urine Protein (NEGATIVE) mg/dL Urine Glucose (UA) (NORMAL) mg/dL Urine Ketones (NEGATIVE) mg/dL Urine Occult Blood (NEGATIVE) Urine Nitrite (NEGATIVE) Urine Bilirubin (NEGATIVE) Urine Urobilinogen (NEGATIVE) mg/dL Ur Leukocyte Esterase (NEGATIVE) U Hyaline Cast (Auto) (NS) Urine RBC (0-5) Urine WBC (0-5) Ur Squamous Epith Cells (NS,R,O) Calcium Oxalate Crystal (NS) Urine Bacteria (NS) 12/23/20 Range/Units 11:15 WBC (3.0-10.3) x10-3/uL RBC (3.60-5.20) x10(6)uL Hgb (11.4-15.5) g/dL Hct (34.2-48.2) % MCV (76.7-100.5) fL MCH (23.9-33.9) pg MCHC (31.9-34.8) g/dL RDW (12.3-16.5) % Plt Count (151-488) x10(3)uL MPV (7.1-12.4) fL Neut % (Auto) (30.8-76.2) % Lymph % (Auto) (18.4-52.1) % [place] % (Auto) (4.4-15.7) % Eos % (Auto) (0.6-8.1) % Baso % (Auto) (0.2-1.5) % Neut # (Auto) (1.5-6.3) x10-3/uL Lymph # (Auto) (1.0-4.4) x10-3/uL [place] # (Auto) (0.3-1.0) x10-3/uL Eos # (Auto) (0.0-0.8) x10-3/uL Baso # (Auto) (0.0-0.1) x10-3/uL PT (9.0-11.1) sec INR (1.00-1.24) Sodium (135-145) mmol/L Potassium (3.5-5.3) mmol/L Chloride (100-110) mmol/L Carbon Dioxide (21-32) mmol/L BUN (7-18) mg/dL Creatinine (0.55-1.02) mg/dL Est Cr Clr Drug Dosing mL/min Estimated GFR (MDRD) (>60) BUN/Creatinine Ratio (9-20) Glucose (80-116) mg/dL Hemoglobin A1c (<5.7) % Lactic Acid (0.4-2.0) mmol/L Calcium (8.6-10.2) mg/dL Total Bilirubin (0.1-1.3) mg/dL AST (5-25) IU/L ALT (12-36) U/L Alkaline Phosphatase (56-112) IU/L Troponin I (4.0-60.3) pg/mL C-Reactive Protein (0.5-0.9) mg/dL Total Protein (6.0-8.0) g/dL Albumin (3.2-4.6) g/dL Globulin g/dL Albumin/Globulin Ratio Urine Color Yellow (YELLOW) Urine Appearance Cloudy (CLEAR) Urine pH 5.0 (5.0-6.5) Ur Specific Garvin 1.025 (1.010-1.025) Urine Protein 100 H (NEGATIVE) mg/dL Urine Glucose (UA) 50 H (NORMAL) mg/dL Urine Ketones 15 H (NEGATIVE) mg/dL Urine Occult Blood Moderate H (NEGATIVE) Urine Nitrite Negative (NEGATIVE) Urine Bilirubin Small H (NEGATIVE) Urine Urobilinogen Normal (NEGATIVE) mg/dL Ur Leukocyte Esterase Large H (NEGATIVE) U Hyaline Cast (Auto) Moderate H (NS) Urine RBC 20-30 H (0-5) Urine WBC 30-40 H (0-5) Ur Squamous Epith Cells Many H (NS,R,O) Calcium Oxalate Crystal Few H (NS) Urine Bacteria Moderate H (NS) Meds: Medications Generic Name Dose Route Start Last Admin Trade Name Freq PRN Reason Stop Dose Admin Nitroglycerin/Dextrose 25 mg in 250 mls @ 6 mls/hr 12/23/20 12:45 12/23/20 13:03 Nitroglycerin 25 Mg/D5w 250 Ml IV 5 mcg/min TITRATE KEYONNA 3 mls/hr Titration Protocol 10 MCG/MIN Piperacillin Sod/Tazobactam 100 mls @ 200 mls/hr 12/23/20 13:07 Sod 4.5 gm/ Sodium Chloride IV 12/23/20 13:36 ONETIME ONE Discontinued Medications Generic Name Dose Route Start Last Admin Trade Name Freq PRN Reason Stop Dose Admin Sodium Chloride 1,000 mls @ 999 mls/hr 12/23/20 09:57 12/23/20 10:15 Normal Saline IV 12/23/20 10:57 999 mls/hr .BOLUS ONE Administration Sodium Chloride 1,000 mls @ 999 mls/hr 12/23/20 11:13 12/23/20 11:50 Normal Saline IV 12/23/20 12:13 999 mls/hr .BOLUS ONE Administration Iopamidol 100 ml 12/23/20 10:25 12/23/20 11:40 Iopamidol 755 Mg/Ml 100 Ml Bottle IV 12/23/20 10:26 85 ml . DIRECTED ONE Administration Morphine Sulfate 2 mg 12/23/20 09:58 12/23/20 10:21 Morphine 2 Mg/Ml Syringe IVPUSH 12/23/20 09:59 2 mg ONETIME ONE Administration Morphine Sulfate 2 mg 12/23/20 11:14 12/23/20 11:50 Morphine 2 Mg/Ml Syringe IVPUSH 12/23/20 11:15 2 mg ONETIME ONE Administration Ondansetron HCl 4 mg 12/23/20 09:58 12/23/20 10:22 Ondansetron 4 Mg/2 Ml Sdv IVPUSH 12/23/20 09:59 4 mg ONETIME ONE Administration - Re-Assessments/Exams Free Text/Narrative Re-Assessment/Exam: 12/23/20 11:15 pain dec'd 02/08 to 11/08 after 2 mg MS IV, pt did want additional pain meds pt O2 has dec'd and is on 2 l/min NC, alert, conversant pt has seen assistant laboratory director 2x for sob, etiology uncertain, is scheduled to begin pul rehab in [facility] next week creat 1.5, was 1.0 from 1y ago ago, labs c/w prerenal azotemia, will given 2 liter NS as baseline renal function is wnl, will proceed with CT abd/pelvis with IV contrast BP running higher for some reason 170/111, will continue to monitor, prefer not to give BP meds in context of GI bleed with dehydration, will consider nitro drip on ASA 325 mg/d, only blood thinner 12/23/20 12:37 HELGA done, rectal with dark stool on skin in perianal area, no hemorrhoids, skin intact, nl tone, BRB on gloved finger, minimal in quantity, still no BM here in ED BP remains high, last BP 189/113, pt does not think she has a dx of HTN but is not sure current meds include lisinopril 10 mg/d and propranolol LA 240 mg/d 12/23/20 12:42 hgg 12.8, was 14.1 from 1.5y ago BUN/creat 21/1.5, previously 16/1.0 lactic acid 2.8 alk phos 169, no change x 4y trop neg glucose 231, previously 128, usually mid 100s, A1C 6.7, previously 5.6 from 4y ago, on DM meds, inc'd BMI 12/23/20 13:02 BP 161/87 on 10 mcg/min of nitro CxR 2v is neg per radiology last colonoscopy 03-26-[address] Borjas with 3 polyps and sigmoid diverticulosis d/w Dr Ruiz [place] hospitalist who accepted pt in transfer 12/23/20 13:13 CT abd/pelvis with IV contrast with inflammation distal transvere and descending colon, 3.2 cm R common iliac artery with IR consult recommended by radiologist Departure - Departure Time of Disposition: 13:12 Disposition: DC/Tfer to Acute Hospital 02 Condition: Good Clinical Impression: Bright red blood per rectum, Diarrhea, Acute on chronic renal insufficiency, Elevated lactic acid level, Hypertensive urgency, Hyperglycemia, Diabetes, Elevated alkaline phosphatase level, Colitis, Immunosuppressed status, Aneurysm of right common iliac artery Elevated WBC count Qualifiers: Leukocytosis type: unspecified Qualified Code(s): D72.829 - Elevated white blood cell count, unspecified - Discharge Information *PRESCRIPTION DRUG MONITORING PROGRAM REVIEWED*: Not Applicable *COPY OF PRESCRIPTION DRUG MONITORING REPORT IN PATIENT RICCO: Not Applicable Referrals: Clyde Gonzales MD [Primary Care Provider] - Sepsis Event Note (ED) - Focused Exam Vital Signs: Vital Signs Temp Pulse Resp BP Pulse Ox 12/23/20 09:46 37.0 C 76 20 189/98 H 93 L - My Orders Last 24 Hours: My Active Orders 12/23/20 09:59 EKG Documentation Completion [RC] ASDIRECTED EKG 12 Lead [EK] Routine 12/23/20 10:03 Blood Culture x2 Reflex Set [OM.PC] Urgent 12/23/20 10:04 Abdomen Pelvis w Cont [CT] Stat 12/23/20 10:20 CULTURE BLOOD [BC] Urgent 12/23/20 10:30 CULTURE BLOOD [BC] Urgent 12/23/20 11:15 CULTURE URINE [RM] Stat 12/23/20 11:17 Chest 2V [CR] Stat 12/23/20 12:45 Nitroglycerin 25 MG in D5W @ 10 MCG/MIN(250ml) Premix Nitroglycerin/D5W [Nitroglycerin 25 MG/D5W 250 ML] 25 mg in 250 ml IV TITRATE 12/23/20 13:07 Piperacillin/Tazobactam [Zosyn] 4.5 gm Sodium Chloride 0.9% [Normal Saline] 100 ml IV ONETIME - Assessment/Plan Last 24 Hours: My Active Orders 12/23/20 09:59 EKG Documentation Completion [RC] ASDIRECTED EKG 12 Lead [EK] Routine 12/23/20 10:03 Blood Culture x2 Reflex Set [OM.PC] Urgent 12/23/20 10:04 Abdomen Pelvis w Cont [CT] Stat 12/23/20 10:20 CULTURE BLOOD [BC] Urgent 12/23/20 10:30 CULTURE BLOOD [BC] Urgent 12/23/20 11:15 CULTURE URINE [RM] Stat 12/23/20 11:17 Chest 2V [CR] Stat 12/23/20 12:45 Nitroglycerin 25 MG in D5W @ 10 MCG/MIN(250ml) Premix Nitroglycerin/D5W [Nitroglycerin 25 MG/D5W 250 ML] 25 mg in 250 ml IV TITRATE 12/23/20 13:07 Piperacillin/Tazobactam [Zosyn] 4.5 gm Sodium Chloride 0.9% [Normal Saline] 100 ml IV ONETIME
[2020-12-23] MEDS: Morphine 2 MG/ML SYRINGE IVPUSH ONE ×3 (10:21→14:50)
[2020-12-23] MEDS: Ondansetron 4 MG/2 ML SDV IVPUSH ONE (10:22)
[2020-12-23 11:07] VITALS: BP 189/98; PULSE 76
[2020-12-23] MEDS: Iopamidol 755 Mg/ML 100 ML Bottle IV ONE (11:40)
[2020-12-23 11:43] LABS: HEMOGLOBIN A1C 6.7 % (<5.7)
[2020-12-23] MEDS: Nitroglycerin/D5W 25 MG/250 ML BOTTLE IV SCH (12:39)
[2020-12-23] MEDS: Piperacillin/Tazobactam 4.5 GM in Sodium Chloride 0.9% 100 ML IV ONE (13:22)
== END 2020-12-23 15:10 ==
LOC: FB.ED 09:31
DX: K62.5 Hemorrhage of anus and rectum (principal); K52.9 Noninfective gastroenteritis and colitis, unspecified; E11.65 Type 2 diabetes mellitus with hyperglycemia; E11.22 Type 2 diabetes mellitus with diabetic chronic kidney disease; N18.9 Chronic kidney disease, unspecified; R74.02 Elevation of levels of lactic acid dehydrogenase [LDH]; R74.8 Abnormal levels of other serum enzymes; I16.0 Hypertensive urgency; I72.3 Aneurysm of iliac artery; D72.829 Elevated white blood cell count, unspecified; E78.00 Pure hypercholesterolemia, unspecified; J45.909 Unspecified asthma, uncomplicated; M06.9 Rheumatoid arthritis, unspecified; E03.9 Hypothyroidism, unspecified; E66.9 Obesity, unspecified; Z68.34 Body mass index [BMI] 34.0-34.9, adult; Z88.1 Allergy status to other antibiotic agents; Z79.899 Other long term (current) drug therapy
CPT/HCPCS: 36415; 71046; 74177; 80053; 81001; 83036; 83605; 84484; 85025; 85610; 86140; 87040; 87086; 93005; 93010; 96365; 96366; 96368; 96375; 96376; 99285; J2270; J2405; J2543; J3490; J7030; Q9967

== ENCOUNTER 2020-12-28 09:18 | Emergency (ER) | payer MEDICARE, OTHER ==
[2020-12-28 09:48] VITALS: BP 121/100; PULSE 59
--- NOTE | 2020-12-28 10:40 | EDM.PDOC ---
ED HPI GENERAL MEDICAL PROBLEM - General Chief Complaint: Eye Problems Stated Complaint: FELL AND HIT HEAD Time Seen by Provider: 12/28/20 09:25 Source of Information: Reports: Patient History Limitations: Reports: No Limitations - History of Present Illness INITIAL COMMENTS - FREE TEXT/NARRATIVE: Patient presented to the ED because she tripped and fell at the parking lot yesterday and hit her face, rt wrist and rt knee on the ground. There was no LOC. Denies having any nausea/vomiting but has mild facial pain and headache. - Related Data Allergies Allergy/AdvReac Type Severity Reaction Status Date / Time bacitracin Allergy Other Verified 12/23/20 11:35 Home Meds: Home Meds Propranolol [Inderal LA] 240 mg PO DAILY 11/06/16 [History] DULoxetine HCl [Duloxetine HCl] 60 mg PO DAILY 06/20/19 [History] Doxepin [SINEquan] 50 mg PO BEDTIME 06/20/19 [History] Mirtazapine 7.5 mg PO BEDTIME 06/20/19 [History] Rosuvastatin [Crestor] 40 mg PO DAILY 03/22/20 [History] Temazepam 30 mg PO BEDTIME PRN 03/22/20 [History] azaTHIOprine [Azathioprine] 50 mg PO DAILY 03/22/20 [History] traMADol [Ultram] 50 mg PO Q6HR PRN 03/22/20 [History] Furosemide [Lasix] 20 mg PO DAILY 12/23/20 [History] Levothyroxine [Synthroid] 100 mcg PO DAILY 12/23/20 [History] Oxybutynin 5 mg PO BID 12/23/20 [History] Pramipexole [Mirapex] 0.5 mg PO BEDTIME 12/23/20 [History] lisinopriL [Lisinopril] 10 mg PO DAILY 12/23/20 [History] Past Medical History HEENT History: Reports: Impaired Vision, Other (See Below) Other HEENT History: meibomian gland disease and pinguecula Cardiovascular History: Reports: None, High Cholesterol Respiratory History: Reports: Asthma, Other (See Below) 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: being worked up by operating room technologist Gastrointestinal History: Reports: Gastritis, GERD, PUD, Other (See Below) Other Gastrointestinal History: gastroduodenitis, ESOPHAGITIS Genitourinary History: Reports: Renal Calculus, Urinary Incontinence, UTI, Recurrent, Other (See Below) Other Genitourinary History: [employer] 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: , Other (See Below) 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 Musculoskeletal History: Reports: Arthritis, Back Pain, Chronic, Fibromyalgia, Osteoarthritis Other Musculoskeletal History: RESTLESS LEGS SYNDROME, PERONEAL TENDONOSIS, LEFT SIDED WEAKNESS POST STROKE Neurological History: Reports: CVA, Migraines, Speech Problems, Vertigo, Other (See Below) Other Neuro History: LEFT FRONTAL LOBE BRAIN LESION Psychiatric History: Reports: Anxiety, Depression Endocrine/Metabolic History: Reports: Hypothyroidism, Obesity/BMI 30+ Hematologic History: Reports: None Immunologic History: Reports: None Oncologic (Cancer) History: Reports: None Dermatologic History: Reports: None - Infectious Disease History Infectious Disease History: Reports: Measles - Past Surgical History Head Surgeries/Procedures: Reports: None HEENT Surgical History: Reports: Other (See Below) Other HEENT Surgeries/Procedures: pterygium ptosis Cardiovascular Surgical History: Reports: None, Coronary Artery Bypass, Coronary Artery Stent, Other (See Below) Other Cardiovascular Surgeries/Procedures: HAD A LOOP RECORDER Respiratory Surgical History: Reports: None GI Surgical History: Reports: Appendectomy, Cholecystectomy, Colonoscopy Other GI Surgeries/Procedures: MANOMETRY ESOPHAGEAL Female Surgical History: Reports: Cystoscopy, Lithotripsy/ESWL, Tubal Ligation, Ureteral Stent, Other (See Below) Other Female Surgeries/Procedures: OVARIAN CYST Neurological Surgical History: Reports: Other (See Below) Other Neurological Surgeries/Procedures: SPINE SURGERY Musculoskeletal Surgical History: Reports: Arthroscopic Knee, Arthroscopic Procedure, Shoulder Surgery Other Musculoskeletal Surgeries/Procedures:: left knee, foot surgery, spinal surgery, L PERONEOUS BREVIS TENDON REPAIR, SHOULDER SURGERY Oncologic Surgical History: Reports: None Dermatological Surgical History: Reports: None Social & Family History - Family History Family Medical History: No Pertinent Family History Cardiac: Reports: High Cholesterol, [place] - Tobacco Use Tobacco Use Status *Q: Never Tobacco User - Caffeine Use Caffeine Use: Reports: None Caffeine Use Comment: 1 soda every 2 weeks - Recreational Drug Use Recreational Drug Use: No ED ROS GENERAL - Review of Systems Review Of Systems: See Below Constitutional: Reports: No Symptoms HEENT: Reports: No Symptoms Respiratory: Reports: No Symptoms Cardiovascular: Reports: No Symptoms Endocrine: Reports: No Symptoms GI/Abdominal: Reports: No Symptoms : Reports: No Symptoms Musculoskeletal: Reports: No Symptoms Skin: Reports: No Symptoms Neurological: Reports: Headache Psychiatric: Reports: No Symptoms ED EXAM GENERAL W FULL EYE - Physical Exam Exam: See Below Exam Limited By: No Limitations General Appearance: Alert, No Apparent Distress Eye Exam: Bilateral Eye: PERRL Ears: Normal External Exam, Normal Canal, Hearing Grossly Normal Nose: Normal Inspection, Normal Mucosa, No Blood Throat/Mouth: Normal Inspection, Normal Lips, Normal Teeth Head: Atraumatic, Normocephalic Neck: Normal Inspection, Supple, Non-Tender, Full Range of Motion Respiratory/Chest: No Respiratory Distress, Lungs Clear, Normal Breath Sounds, No Accessory Muscle Use, Chest Non-Tender Cardiovascular: Normal Peripheral Pulses, Regular Rate, Rhythm, No Edema, No JVD, No Murmur GI/Abdominal: Normal Bowel Sounds, Soft, Non-Tender, No Organomegaly Back Exam: Normal Inspection, Full Range of Motion Course - Vital Signs Text/Narrative:: Head and Facial CT result-negative Last Recorded V/S: Last Vital Signs Temp 35.9 C L 12/28/20 09:18 Pulse 59 L 12/28/20 09:18 Resp 20 12/28/20 09:18 BP 121/100 H 12/28/20 09:18 Pulse Ox 96 12/28/20 09:18 - Orders/Labs/Meds Orders: Active Orders 24 hr Category Date Time Status Head wo Cont [CT] Stat Exams 12/28/20 09:30 Taken Max Facial Sinus wo Cont [CT] Stat Exams 12/28/20 09:30 Taken Departure - Departure Time of Disposition: 10:40 Disposition: Home, Self-Care 01 Condition: Good Clinical Impression: Closed head injury, Facial injury - Discharge Information Instructions: Head Injury, Adult, [id number] Referrals: Clyde Gonzales MD [Primary Care Provider] - Additional Instructions: Please read discharge instructions on close head injury and facial injury Take ibuprofen 600 mg with tylenol 500 mg every 6 hours as needed for headache Follow up as needed Sepsis Event Note (ED) - Evaluation Sepsis Screening Result: No Definite Risk - Focused Exam Vital Signs: Vital Signs Temp Pulse Resp BP Pulse Ox 12/28/20 09:18 35.9 C L 59 L 20 121/100 H 96 - My Orders Last 24 Hours: My Active Orders 12/28/20 09:30 Head wo Cont [CT] Stat Max Facial Sinus wo Cont [CT] Stat - Assessment/Plan Last 24 Hours: My Active Orders 12/28/20 09:30 Head wo Cont [CT] Stat Max Facial Sinus wo Cont [CT] Stat
--- NOTE | 2020-12-28 11:00 | CT ---
INDICATION: Fall, blurred vision. CT HEAD WITHOUT CONTRAST: Spiral 3.75 mm axial sections were obtained through the brain without contrast with axial, sagittal, and coronal reconstructions 12/28/20 and compared with 06/20/19. Total exam DLP was 1296.53 milligray-cm. The cranium appears to be intact. No evidence of scalp hematoma was noted. Thickening of the lining of the right maxillary antrum with an air-fluid level suggests acute sinusitis in that area as does almost complete opacification with a frothy appearance of the apparent thick fluid in the left sphenoidal air cell. The paranasal sinuses were otherwise well aerated. The mastoid air cells appear to be well aerated. There appear to be internal carotid artery calcifications. Areas of decreased density are noted in the right thalamus and to a much lesser extent in the left thalamus suggesting lacunar infarcts large on the right. There is again noted a relatively focal area, although indistinct, of decreased density in the left parietal area which was present previously and likely represents a subcortical infarct. No evidence of a bleeding site or hematoma was seen. No shift of midline structures or significant ventricular abnormality was identified. Fu-white matter interface appears normal. IMPRESSION: 1. No definite acute intracranial abnormality. 2. Acute sinusitis. 3. Low-density abnormality in the right thalamus much more prominent than on the previous study and more defined compatible with an evolved lacunar infarct. 4. Cerebrovascular disease with old subcortical infarct left parietal area. MTDD
--- NOTE | 2020-12-28 11:09 | CT ---
INDICATION: Fall, blurred vision. CT MAXILLOFACIAL WITHOUT CONTRAST: Spiral 2.5 mm axial sections were obtained through the paranasal sinuses - maxillofacial bones 12/28/20 and compared with 10/14/17. Total exam DLP was 722.45 milligray-cm. Thickening of the lining and air-fluid level is noted in the right maxillary antrum. Almost complete opacification of the left sphenoidal air cell is noted with a somewhat frothy appearance. These findings were not present on the previous examination, and are compatible with acute sinusitis. A definite fracture was not identified in the maxillofacial area and the remainder of the paranasal sinuses appear to be fairly well aerated. The maxillary infundibuli were patent. The orbits appear to be intact. Evidence of cataract surgery is noted. IMPRESSION: 1. Acute sinusitis. 2. Post cataract surgery. 3. No definite fracture site is noted. Report was called to Dr. Davenport at 1026 hours 12/28/20. [facility]
== END 2020-12-28 10:49 | disposition home or self-care (01) ==
LOC: FB.ED 09:18
DX: S09.90XA Unspecified injury of head, initial encounter (principal); S09.93XA Unspecified injury of face, initial encounter; E78.00 Pure hypercholesterolemia, unspecified; J45.909 Unspecified asthma, uncomplicated; M19.90 Unspecified osteoarthritis, unspecified site; E03.9 Hypothyroidism, unspecified; E66.9 Obesity, unspecified; Z68.34 Body mass index [BMI] 34.0-34.9, adult; Z88.1 Allergy status to other antibiotic agents; Z79.899 Other long term (current) drug therapy; W01.198A Fall on same level from slipping, tripping and stumbling with subsequent striking against other object, initial encounter; Y92.481 Parking lot as the place of occurrence of the external cause
CPT/HCPCS: 70450; 70486; 99283-25

== ENCOUNTER 2021-03-18 13:41 | Emergency (ER) | payer MEDICARE, OTHER ==
[2021-03-18] MEDS ORDERED: Sodium Chloride 0.9% 1,000 ML IV ONE ×2 (14:05→16:23)
--- NOTE | 2021-03-18 14:11 | EDM.PDOC ---
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 and she needs to wear CPAP which she has not been willing to do had Achilles tendon surgery on left 2m ago, still wearing walking boot has had COVID vax x 2 in spring, no f/c/d, no sob/cough has not been eating and drinking the past several days last head CT 3m ago sent over from clinic here with received a rheumatoid infusion one month ago - Related Data Allergies Allergy/AdvReac Type Severity Reaction Status Date / Time bacitracin Allergy Other Verified 01/03/21 10:44 Home Meds: Home Meds Propranolol [Inderal LA] 240 mg PO DAILY 11/06/16 [History] DULoxetine HCl [Duloxetine HCl] 60 mg PO DAILY 06/20/19 [History] Doxepin [SINEquan] 50 mg PO BEDTIME 06/20/19 [History] Mirtazapine 7.5 mg PO BEDTIME 06/20/19 [History] Rosuvastatin [Crestor] 40 mg PO DAILY 03/22/20 [History] Temazepam 30 mg PO BEDTIME PRN 03/22/20 [History] azaTHIOprine [Azathioprine] 50 mg PO DAILY 03/22/20 [History] traMADol [Ultram] 50 mg PO Q6HR PRN 03/22/20 [History] Furosemide [Lasix] 20 mg PO DAILY 12/23/20 [History] Levothyroxine [Synthroid] 100 mcg PO DAILY 12/23/20 [History] Oxybutynin 5 mg PO BID 12/23/20 [History] Pramipexole [Mirapex] 0.5 mg PO BEDTIME 12/23/20 [History] lisinopriL [Lisinopril] 10 mg PO DAILY 12/23/20 [History] Past Medical History HEENT History: Reports: Impaired Vision, Other (See Below) Other HEENT History: meibomian gland disease and pinguecula Cardiovascular History: Reports: None, High Cholesterol Respiratory History: Reports: Asthma, Other (See Below) 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: 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 Gastrointestinal History: Reports: Gastritis, GERD, PUD, Other (See Below) Other Gastrointestinal History: gastroduodenitis, ESOPHAGITIS Genitourinary History: Reports: Renal Calculus, Urinary Incontinence, UTI, Recurrent, Other (See Below) Other Genitourinary History: [employer] 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: , Other (See Below) Other 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 CLERK 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: OVARIAN CYST REMOVAL Musculoskeletal History: Reports: Arthritis, Back Pain, Chronic, Fibromyalgia, Osteoarthritis Other Musculoskeletal History: RESTLESS LEGS SYNDROME, PERONEAL TENDONOSIS, LEFT SIDED WEAKNESS POST STROKE Neurological History: Reports: CVA, Migraines, Speech Problems, Vertigo, Other (See Below) Other Neuro History: LEFT FRONTAL LOBE BRAIN LESION, BPPV Psychiatric History: Reports: Anxiety, Depression, Suicide Attempt Endocrine/Metabolic History: Reports: Hypothyroidism, Obesity/BMI 30+ Hematologic History: Reports: None Immunologic History: Reports: None Oncologic (Cancer) History: Reports: None Dermatologic History: Reports: None - Infectious Disease History Infectious Disease History: Reports: Measles - Past Surgical History HEENT Surgical History: Reports: Other (See Below) Other HEENT Surgeries/Procedures: pterygium ptosis Cardiovascular Surgical History: Reports: None, Coronary Artery Bypass, Coronary Artery Stent, Other (See Below) Other Cardiovascular Surgeries/Procedures: HAD A LOOP RECORDER Respiratory Surgical History: Reports: None GI Surgical History: Reports: Appendectomy, Cholecystectomy, Colonoscopy Other GI Surgeries/Procedures: MANOMETRY ESOPHAGEAL Female Surgical History: Reports: Cystoscopy, Lithotripsy/ESWL, Tubal Ligation, Ureteral Stent, Other (See Below) Other Female Surgeries/Procedures: OVARIAN CYST Neurological Surgical History: Reports: Other (See Below) Other Neurological Surgeries/Procedures: SPINE SURGERY Musculoskeletal Surgical History: Reports: Arthroscopic Knee, Arthroscopic Procedure, Shoulder Surgery Other Musculoskeletal Surgeries/Procedures:: left knee, foot surgery, spinal surgery, L PERONEOUS BREVIS TENDON REPAIR, SHOULDER SURGERY Oncologic Surgical History: Reports: None Dermatological Surgical History: Reports: None Social & Family History - Family History Family Medical History: No Pertinent Family History Cardiac: Reports: High Cholesterol, [place] - Caffeine Use Caffeine Use: Reports: None Caffeine Use Comment: 1 soda every 2 weeks ED ROS GENERAL - Review of Systems Review Of Systems: See Below Constitutional: Reports: Malaise, Weakness. Denies: Fever, Chills HEENT: Reports: No Symptoms Respiratory: Reports: No Symptoms, Other (says she does not use her inhaler (has alb HFA)). Denies: Shortness of Breath Cardiovascular: Reports: No Symptoms. Denies: Chest Pain Endocrine: Reports: No Symptoms GI/Abdominal: Reports: No Symptoms : Reports: No Symptoms Musculoskeletal: Reports: No Symptoms Skin: Reports: No Symptoms Neurological: Reports: No Symptoms Psychiatric: Reports: No Symptoms Hematologic/Lymphatic: Reports: No Symptoms Immunologic: Reports: No Symptoms ED EXAM, NEURO - Physical Exam Exam: See Below Exam Limited By: No Limitations General Appearance: Alert, WD/WN, No Apparent Distress, Other (sleepy, PO 96% on RA, does decrease if monitor moves, conversant, answers questions appropriately) Eye Exam: Bilateral Eye: EOMI, PERRL Ears: Hearing Grossly Normal Nose: Normal Inspection, Normal Mucosa, No Blood Throat/Mouth: Normal Inspection, Normal Lips, Normal Voice, No Airway Compromise Head Exam: Atraumatic, Normocephalic Neck: Normal Inspection, Supple, Non-Tender, Full Range of Motion. No: Lymphadenopathy (R), Lymphadenopathy (L) Respiratory/Chest: No Respiratory Distress, Lungs Clear, Normal Breath Sounds, Chest Non-Tender Cardiovascular: Regular Rate, Rhythm, Other (dec'd turgor UEs, trace pretib edema b/l, ) GI/Abdominal: Soft, Non-Tender, No Distention Neurological: Alert, CN II-XII Intact, No Motor/Sensory Deficits, Oriented x 3 Back Exam: Normal Inspection, Full Range of Motion Extremities: Normal Range of Motion, No Pedal Edema Skin Exam: Warm, Dry, Intact, Normal Color, No Rash #1 Interpretation EKG Date: 03/18/21 Time: 15:42 Rhythm: NSR Rate (Beats/Min): 63 [place]: Normal P-Wave: Present QRS: Normal ST-T: Normal QT: Normal (no acute/ischemic changes) Course - Vital Signs Last Recorded V/S: Last Vital Signs Temp 35.4 C L 03/19/21 06:47 Pulse 66 03/19/21 16:00 Resp 16 03/19/21 16:00 BP 151/93 H 03/19/21 16:00 Pulse Ox 93 L 03/19/21 16:00 - Orders/Labs/Meds Orders: Active Orders 24 hr Category Date Time Status BASIC METABOLIC PANEL,BMP [CHEM] Stat Lab 03/19/21 18:52 Ordered BLOOD GAS VENOUS [BG] Stat Lab 03/19/21 18:51 Ordered Dextrose 5%-0.45% NaCl [Dextrose 5%-1/2 NS] 1,000 ml Med 03/18/21 22:45 Active IV ASDIRECTED Dextrose 5%-0.45% NaCl [Dextrose 5%-1/2 NS] 1,000 ml Med 03/19/21 09:15 Active IV ASDIRECTED Levothyroxine [Synthroid] Med 03/19/21 10:00 Active 100 mcg PO DAILY@0600 Mirtazapine [Remeron] Med 03/19/21 21:00 Active 30 mg PO BEDTIME Oxybutynin Med 03/18/21 22:30 Active 5 mg PO DAILY Pramipexole [Mirapex] Med 03/19/21 21:00 Active 0.5 mg PO BEDTIME Sodium Chloride 0.45% @ 100 MLS/HR(1,000ml) Med 03/19/21 19:30 Ordered Sodium Chloride 0.45% 1,000 ml IV ASDIRECTED Medication Orders Dextrose/Sodium Chloride (Dextrose 5%-1/2 Ns) 1,000 mls @ 75 mls/hr IV ASDIRECTED KEYONNA Last Infusion: 03/19/21 09:20 Dose: 100 mls/hr Documented by: Admin: 03/18/21 23:30 Dose: 75 mls/hr Documented by: KEYUR Dextrose/Sodium Chloride (Dextrose 5%-1/2 Ns) 1,000 mls @ 100 mls/hr IV ASDIRECTED KEYONNA Last Admin: 03/19/21 12:07 Dose: 100 mls/hr Documented by: MARILYNN Levothyroxine Sodium (Levothyroxine 100 Mcg Tab) 100 mcg PO DAILY@0600 [facility] Last Admin: 03/19/21 09:40 Dose: 100 mcg Documented by: MARILYNN Mirtazapine (Mirtazapine 30 Mg Tab) 30 mg PO BEDTIME [facility] Oxybutynin Chloride (Oxybutynin 5 Mg Tab) 5 mg PO DAILY [facility] Last Admin: 03/19/21 09:22 Dose: Not Given Documented by: Admin: 03/18/21 23:20 Dose: 5 mg Documented by: KEYUR Pramipexole Dihydrochloride (Pramipexole 0.25 Mg Tab) 0.5 mg PO BEDTIME KEYONNA Labs: Laboratory Tests 03/18/21 03/18/21 03/18/21 Range/Units 14:40 14:40 14:40 WBC 7.4 (3.0-10.3) x10-3/uL RBC 2.81 L (3.60-5.20) x10(6)uL Hgb 9.1 L D (11.4-15.5) g/dL Hct 28.1 L D (34.2-48.2) % MCV 100.1 (76.7-100.5) fL MCH 32.4 (23.9-33.9) pg MCHC 32.4 (31.9-34.8) g/dL RDW 16.6 H (12.3-16.5) % Plt Count 187 (151-488) x10(3)uL MPV 7.4 (7.1-12.4) fL Neut % (Auto) (30.8-76.2) % Lymph % (Auto) (18.4-52.1) % [place] % (Auto) (4.4-15.7) % Eos % (Auto) (0.6-8.1) % Baso % (Auto) (0.2-1.5) % Neut # (Auto) (1.5-6.3) x10-3/uL Lymph # (Auto) (1.0-4.4) x10-3/uL [place] # (Auto) (0.3-1.0) x10-3/uL Eos # (Auto) (0.0-0.8) x10-3/uL Baso # (Auto) (0.0-0.1) x10-3/uL Add Manual Diff Yes Neutrophils % (Manual) 61 (46-82) % Band Neutrophils % 2 (0-6) % Lymphocytes % (Manual) 23 (13-37) % Monocytes % (Manual) 10 (4-12) % Eosinophils % (Manual) 4 (0-5) % POC VBG pH (7.32-7.43) pH Units POC VBG pCO2 (41-51) mmHg POC VBG HCO3 (22-29) mmol/L VBG Base Excess (-2 - 3+) mmol/L O2 Delivery Device Oxygen Flow Rate LPM Sodium 132 L (135-145) mmol/L Potassium 6.7 H* D (3.5-5.3) mmol/L Chloride 96 L D (100-110) mmol/L Carbon Dioxide 14 L (21-32) mmol/L BUN 93 H D (7-18) mg/dL Creatinine 16.5 H* (0.55-1.02) mg/dL Est Cr Clr Drug Dosing TNP Estimated GFR (MDRD) 2 L (>60) BUN/Creatinine Ratio 5.6 L (9-20) Glucose 97 D (80-116) mg/dL Calcium 8.2 L (8.6-10.2) mg/dL Total Bilirubin 3.5 H (0.1-1.3) mg/dL AST 29 H D (5-25) IU/L ALT 18 D (12-36) U/L Alkaline Phosphatase 135 H (56-112) IU/L Troponin I 7.4 (4.0-60.3) pg/mL C-Reactive Protein 5.6 H* (0.5-0.9) mg/dL Total Protein 6.8 (6.0-8.0) g/dL Albumin 2.6 L (3.2-4.6) g/dL Globulin 4.2 g/dL Albumin/Globulin Ratio 0.6 TSH, Ultra Sensitive (0.36-3.74) IU/mL Urine Color (YELLOW) Urine Appearance (CLEAR) Urine pH (5.0-6.5) Ur Specific [place] (1.010-1.025) Urine Protein (NEGATIVE) mg/dL Urine Glucose (UA) (NORMAL) mg/dL Urine Ketones (NEGATIVE) mg/dL Urine Occult Blood (NEGATIVE) Urine Nitrite (NEGATIVE) Urine Bilirubin (NEGATIVE) Urine Urobilinogen (NEGATIVE) mg/dL Ur Leukocyte Esterase (NEGATIVE) Urine RBC (0-5) Urine WBC (0-5) Ur Squamous Epith Cells (NS,R,O) Calcium Oxalate Crystal (NS) Urine Bacteria (NS) Coarse Granular Casts (NS) SARS-CoV-2 RNA (PETRA) (NEGATIVE) Group A Strep (PCR) (NOT DETECT) 1003/18/21 03/18/21 Range/Units 15:35 15:35 15:36 WBC (3.0-10.3) x10-3/uL RBC (3.60-5.20) x10(6)uL Hgb (11.4-15.5) g/dL Hct (34.2-48.2) % MCV (76.7-100.5) fL MCH (23.9-33.9) pg MCHC (31.9-34.8) g/dL RDW (12.3-16.5) % Plt Count (151-488) x10(3)uL MPV (7.1-12.4) fL Neut % (Auto) (30.8-76.2) % Lymph % (Auto) (18.4-52.1) % [place] % (Auto) (4.4-15.7) % Eos % (Auto) (0.6-8.1) % Baso % (Auto) (0.2-1.5) % Neut # (Auto) (1.5-6.3) x10-3/uL Lymph # (Auto) (1.0-4.4) x10-3/uL [place] # (Auto) (0.3-1.0) x10-3/uL Eos # (Auto) (0.0-0.8) x10-3/uL Baso # (Auto) (0.0-0.1) x10-3/uL Add Manual Diff Neutrophils % (Manual) (46-82) % Band Neutrophils % (0-6) % Lymphocytes % (Manual) (13-37) % Monocytes % (Manual) (4-12) % Eosinophils % (Manual) (0-5) % POC VBG pH 7.31 L (7.32-7.43) pH Units POC VBG pCO2 37 L (41-51) mmHg POC VBG HCO3 19 L (22-29) mmol/L VBG Base Excess -7 L (-2 - 3+) mmol/L O2 Delivery Device Nasal cannula Oxygen Flow Rate 2 LPM Sodium (135-145) mmol/L Potassium (3.5-5.3) mmol/L Chloride (100-110) mmol/L Carbon Dioxide (21-32) mmol/L BUN (7-18) mg/dL Creatinine (0.55-1.02) mg/dL Est Cr Clr Drug Dosing Estimated GFR (MDRD) (>60) BUN/Creatinine Ratio (9-20) Glucose (80-116) mg/dL Calcium (8.6-10.2) mg/dL Total Bilirubin (0.1-1.3) mg/dL AST (5-25) IU/L ALT (12-36) U/L Alkaline Phosphatase (56-112) IU/L Troponin I (4.0-60.3) pg/mL C-Reactive Protein (0.5-0.9) mg/dL Total Protein (6.0-8.0) g/dL Albumin (3.2-4.6) g/dL Globulin g/dL Albumin/Globulin Ratio TSH, Ultra Sensitive (0.36-3.74) IU/mL Urine Color (YELLOW) Urine Appearance (CLEAR) Urine pH (5.0-6.5) Ur Specific [place] (1.010-1.025) Urine Protein (NEGATIVE) mg/dL Urine Glucose (UA) (NORMAL) mg/dL Urine Ketones (NEGATIVE) mg/dL Urine Occult Blood (NEGATIVE) Urine Nitrite (NEGATIVE) Urine Bilirubin (NEGATIVE) Urine Urobilinogen (NEGATIVE) mg/dL Ur Leukocyte Esterase (NEGATIVE) Urine RBC (0-5) Urine WBC (0-5) Ur Squamous Epith Cells (NS,R,O) Calcium Oxalate Crystal (NS) Urine Bacteria (NS) Coarse Granular Casts (NS) SARS-CoV-2 RNA (PETRA) Negative (NEGATIVE) Group A Strep (PCR) Not detected (NOT DETECT) 03/18/21 03/18/21 03/19/21 Range/Units 16:42 16:56 07:10 WBC 7.2 (3.0-10.3) x10-3/uL RBC 2.71 L (3.60-5.20) x10(6)uL Hgb 9.0 L (11.4-15.5) g/dL Hct 26.7 L (34.2-48.2) % MCV 98.5 (76.7-100.5) fL MCH 33.3 (23.9-33.9) pg MCHC 33.8 (31.9-34.8) g/dL RDW 16.3 (12.3-16.5) % Plt Count 168 (151-488) x10(3)uL MPV 7.0 L (7.1-12.4) fL Neut % (Auto) 62.9 (30.8-76.2) % Lymph % (Auto) 18.6 (18.4-52.1) % [place] % (Auto) 14.2 (4.4-15.7) % Eos % (Auto) 3.6 (0.6-8.1) % Baso % (Auto) 0.7 (0.2-1.5) % Neut # (Auto) 4.5 (1.5-6.3) x10-3/uL Lymph # (Auto) 1.3 (1.0-4.4) x10-3/uL [place] # (Auto) 1.0 (0.3-1.0) x10-3/uL Eos # (Auto) 0.3 (0.0-0.8) x10-3/uL Baso # (Auto) 0.1 (0.0-0.1) x10-3/uL Add Manual Diff Neutrophils % (Manual) (46-82) % Band Neutrophils % (0-6) % Lymphocytes % (Manual) (13-37) % Monocytes % (Manual) (4-12) % Eosinophils % (Manual) (0-5) % POC VBG pH (7.32-7.43) pH Units POC VBG pCO2 (41-51) mmHg POC VBG HCO3 (22-29) mmol/L VBG Base Excess (-2 - 3+) mmol/L O2 Delivery Device Oxygen Flow Rate LPM Sodium (135-145) mmol/L Potassium (3.5-5.3) mmol/L Chloride (100-110) mmol/L Carbon Dioxide (21-32) mmol/L BUN (7-18) mg/dL Creatinine (0.55-1.02) mg/dL Est Cr Clr Drug Dosing Estimated GFR (MDRD) (>60) BUN/Creatinine Ratio (9-20) Glucose (80-116) mg/dL Calcium (8.6-10.2) mg/dL Total Bilirubin (0.1-1.3) mg/dL AST (5-25) IU/L ALT (12-36) U/L Alkaline Phosphatase (56-112) IU/L Troponin I (4.0-60.3) pg/mL C-Reactive Protein (0.5-0.9) mg/dL Total Protein (6.0-8.0) g/dL Albumin (3.2-4.6) g/dL Globulin g/dL Albumin/Globulin Ratio TSH, Ultra Sensitive < 0.01 L (0.36-3.74) IU/mL Urine Color Yellow (YELLOW) Urine Appearance Slightly cloudy (CLEAR) Urine pH 7.0 H (5.0-6.5) Ur Specific [place] 1.010 (1.010-1.025) Urine Protein Trace (NEGATIVE) mg/dL Urine Glucose (UA) Normal (NORMAL) mg/dL Urine Ketones Negative (NEGATIVE) mg/dL Urine Occult Blood Moderate H (NEGATIVE) Urine Nitrite Negative (NEGATIVE) Urine Bilirubin Negative (NEGATIVE) Urine Urobilinogen Normal (NEGATIVE) mg/dL Ur Leukocyte Esterase Moderate H (NEGATIVE) Urine RBC 5-10 H (0-5) Urine WBC 10-20 H (0-5) Ur Squamous Epith Cells Few H (NS,R,O) Calcium Oxalate Crystal Rare H (NS) Urine Bacteria Few H (NS) Coarse Granular Casts Few H (NS) SARS-CoV-2 RNA (PETRA) (NEGATIVE) Group A Strep (PCR) (NOT DETECT) 03/19/21 03/19/21 Range/Units 07:10 07:10 WBC (3.0-10.3) x10-3/uL RBC (3.60-5.20) x10(6)uL Hgb (11.4-15.5) g/dL Hct (34.2-48.2) % MCV (76.7-100.5) fL MCH (23.9-33.9) pg MCHC (31.9-34.8) g/dL RDW (12.3-16.5) % Plt Count (151-488) x10(3)uL MPV (7.1-12.4) fL Neut % (Auto) (30.8-76.2) % Lymph % (Auto) (18.4-52.1) % [place] % (Auto) (4.4-15.7) % Eos % (Auto) (0.6-8.1) % Baso % (Auto) (0.2-1.5) % Neut # (Auto) (1.5-6.3) x10-3/uL Lymph # (Auto) (1.0-4.4) x10-3/uL [place] # (Auto) (0.3-1.0) x10-3/uL Eos # (Auto) (0.0-0.8) x10-3/uL Baso # (Auto) (0.0-0.1) x10-3/uL Add Manual Diff Neutrophils % (Manual) (46-82) % Band Neutrophils % (0-6) % Lymphocytes % (Manual) (13-37) % Monocytes % (Manual) (4-12) % Eosinophils % (Manual) (0-5) % POC VBG pH (7.32-7.43) pH Units POC VBG pCO2 (41-51) mmHg POC VBG HCO3 (22-29) mmol/L VBG Base Excess (-2 - 3+) mmol/L O2 Delivery Device Oxygen Flow Rate LPM Sodium 137 (135-145) mmol/L Potassium 5.0 D (3.5-5.3) mmol/L Chloride 99 L (100-110) mmol/L Carbon Dioxide 17 L (21-32) mmol/L BUN 88 H (7-18) mg/dL Creatinine 16.4 H* (0.55-1.02) mg/dL Est Cr Clr Drug Dosing 2.91 Estimated GFR (MDRD) 2 L (>60) BUN/Creatinine Ratio 5.4 L (9-20) Glucose 112 (80-116) mg/dL Calcium 7.7 L (8.6-10.2) mg/dL Total Bilirubin 3.2 H (0.1-1.3) mg/dL AST 19 D (5-25) IU/L ALT 18 (12-36) U/L Alkaline Phosphatase 133 H (56-112) IU/L Troponin I (4.0-60.3) pg/mL C-Reactive Protein 5.3 H* (0.5-0.9) mg/dL Total Protein 6.3 (6.0-8.0) g/dL Albumin 2.3 L (3.2-4.6) g/dL Globulin 4.0 g/dL Albumin/Globulin Ratio 0.6 TSH, Ultra Sensitive (0.36-3.74) IU/mL Urine Color (YELLOW) Urine Appearance (CLEAR) Urine pH (5.0-6.5) Ur Specific [place] (1.010-1.025) Urine Protein (NEGATIVE) mg/dL Urine Glucose (UA) (NORMAL) mg/dL Urine Ketones (NEGATIVE) mg/dL Urine Occult Blood (NEGATIVE) Urine Nitrite (NEGATIVE) Urine Bilirubin (NEGATIVE) Urine Urobilinogen (NEGATIVE) mg/dL Ur Leukocyte Esterase (NEGATIVE) Urine RBC (0-5) Urine WBC (0-5) Ur Squamous Epith Cells (NS,R,O) Calcium Oxalate Crystal (NS) Urine Bacteria (NS) Coarse Granular Casts (NS) SARS-CoV-2 RNA (PETRA) (NEGATIVE) Group A Strep (PCR) (NOT DETECT) Meds: Medications Generic Name Dose Route Start Last Admin Trade Name Freq PRN Reason Stop Dose Admin Dextrose/Sodium Chloride 1,000 mls @ 75 mls/hr 03/18/21 22:45 03/19/21 09:20 Dextrose 5%-1/2 Ns IV 100 mls/hr ASDIRECTED KEYONNA Infusion Dextrose/Sodium Chloride 1,000 mls @ 100 mls/hr 03/19/21 09:15 03/19/21 12:07 Dextrose 5%-1/2 Ns IV 100 mls/hr ASDIRECTED KEYONNA Administration Levothyroxine Sodium 100 mcg 03/19/21 10:00 03/19/21 09:40 Levothyroxine 100 Mcg Tab PO 100 mcg DAILY@0600 KEYONNA Administration Mirtazapine 30 mg 03/19/21 21:00 Mirtazapine 30 Mg Tab PO BEDTIME KEYONNA Oxybutynin Chloride 5 mg 03/18/21 22:30 03/19/21 09:22 Oxybutynin 5 Mg Tab PO Not Given DAILY KEYONNA Pramipexole Dihydrochloride 0.5 mg 03/19/21 21:00 Pramipexole 0.25 Mg Tab PO BEDTIME KEYONNA Discontinued Medications Generic Name Dose Route Start Last Admin Trade Name Freq PRN Reason Stop Dose Admin Acetaminophen 1,000 mg 03/18/21 16:25 03/18/21 16:34 Acetaminophen 500 Mg Tab PO 03/18/21 16:26 Not Given ONETIME ONE Acetaminophen 1,000 mg 03/19/21 15:18 03/19/21 16:07 Acetaminophen 500 Mg Tab PO 03/19/21 15:19 1,000 mg ONETIME ONE Administration Acetaminophen 1,000 mg 03/19/21 16:02 03/19/21 18:20 Acetaminophen 500 Mg Tab PO 03/19/21 16:03 Not Given ONETIME ONE Ceftriaxone Sodium 1 gm 03/18/21 18:46 03/18/21 22:37 Ceftriaxone 2 Gm Vial IVPUSH 03/18/21 18:47 1 gm ONETIME ONE Administration Ceftriaxone Sodium Confirm 03/18/21 22:35 03/18/21 22:37 Ceftriaxone 1 Gm Vial Administered 03/18/21 22:36 Not Given Dose 1 gm .ROUTE .STK-MED ONE Sodium Chloride 1,000 mls @ 999 mls/hr 03/18/21 14:05 03/18/21 15:28 Normal Saline IV 03/18/21 15:05 999 mls/hr .BOLUS ONE Administration Sodium Chloride 1,000 mls @ 999 mls/hr 03/18/21 16:23 03/18/21 16:34 Normal Saline IV 03/18/21 17:23 Not Given .BOLUS ONE Levothyroxine Sodium 100 mcg 03/20/21 06:00 Levothyroxine 137 Mcg Tab PO 0600 KEYONNA Ondansetron HCl 4 mg 03/19/21 12:13 03/19/21 12:18 Ondansetron 4 Mg/2 Ml Sdv IVPUSH 03/19/21 12:14 4 mg ONETIME ONE Administration Ondansetron HCl 4 mg 03/19/21 18:18 03/19/21 18:22 Ondansetron 4 Mg/2 Ml Sdv IVPUSH 03/19/21 18:19 4 mg ONETIME ONE Administration Propranolol HCl 240 mg 03/19/21 09:11 03/19/21 09:22 Propranolol 80 Mg Cap.Er PO 03/19/21 09:12 Not Given ONETIME ONE Sodium Polystyrene Sulfonate 30 gm 03/18/21 16:24 03/18/21 16:34 Sodium Polystyrene Sulfonate 15 Gm/60 Ml Susp 60 Ml Bot PO 03/18/21 16:25 30 gm NOW ONE Administration Temazepam 30 mg 03/18/21 22:26 03/18/21 23:20 Temazepam 15 Mg Cap PO 03/18/21 22:27 30 mg ONETIME ONE Administration - Re-Assessments/Exams Free Text/Narrative Re-Assessment/Exam: 03/18/21 22:38 CT abd and pelvis without contrast shows no obstruction urinary tree per Dr Ball, pt appears quite dehydrated with collapse of bladder (after roque placed and 600 ml urine obtained) no beds at [facility], DON at [facility] said that there is no dialysis at the [facility] and the [facility] owned by a [facility] company and is not available to [facility] pts and would not consider transfer as pt is not an immediate dialysis pt tonight and there is nowhere to transfer here, will keep as extended ED visit with hopefully a transfer in the morning there are no inpt beds here at this [facility] either pt has remained stable, alert, talking, eating, not happy about needing to stay at hospital cause of ARF not clear, will hold furosemide 20 mg daily, roque placed and will continue to monitor urine output 03/19/21 19:18 pt is becoming more uremic, repeat VBG and BMP ordered, being drawn currently [facility] has stated several times that they will expedite transfer as there is no dialysis here I spoke with Sue at nurse triage at [facility] at 18:30 and she said that only STEMIs, strokes and trauma were being accepted. Sue understands that the pt may have a serious complication including without further evaluation by nephrology and the availability of dialysis. She said, in essence, that [place] was willing to take that risk and declined to discuss further with administration. Pt d/w Dr Rodriguez from nephrology at 18:45, labs reviewed with him. He said to add 1.5 amps to 1/2 NS at 100 ml/hr and to call back in morning [facility] has no beds. Pt has put out a total of 1900 ml urine: 900 ml by 2300 last night, 300 ml by 700 today, 300 ml by 1500 today and 400 so far by 1900 tonight. cause of ARF still uncertain Departure - Departure Time of Disposition: 19:25 Disposition: Home, Self-Care 01 Condition: Fair Clinical Impression: Acute renal failure, Hyperkalemia, Moderate dehydration, Hyperbilirubinemia, UTI (urinary tract infection), Hypoalbuminemia, Elevated C-reactive protein (CRP), Normochromic normocytic anemia - Discharge Information *PRESCRIPTION DRUG MONITORING PROGRAM REVIEWED*: Not Applicable *COPY OF PRESCRIPTION DRUG MONITORING REPORT IN PATIENT RICCO: Not Applicable Referrals: Clyde Gonzales MD [Primary Care Provider] - Sepsis Event Note (ED) - Focused Exam Vital Signs: Vital Signs Pulse Resp BP Pulse Ox 03/19/21 16:00 66 16 151/93 H 93 L 03/19/21 12:00 72 17 138/87 93 L - My Orders Last 24 Hours: My Active Orders 03/18/21 22:30 Oxybutynin 5 mg PO DAILY 03/18/21 22:45 Dextrose 5%-0.45% NaCl [Dextrose 5%-1/2 NS] 1,000 ml IV ASDIRECTED 03/19/21 09:15 Dextrose 5%-0.45% NaCl [Dextrose 5%-1/2 NS] 1,000 ml IV ASDIRECTED 03/19/21 10:00 Levothyroxine [Synthroid] 100 mcg PO DAILY@0600 03/19/21 18:51 BLOOD GAS VENOUS [BG] Stat 03/19/21 18:52 BASIC METABOLIC PANEL,BMP [CHEM] Stat 03/19/21 19:30 Sodium Chloride 0.45% @ 100 MLS/HR(1,000ml) Sodium Chloride 0.45% 1,000 ml IV ASDIRECTED 03/19/21 21:00 Mirtazapine [Remeron] 30 mg PO BEDTIME Pramipexole [Mirapex] 0.5 mg PO BEDTIME - Assessment/Plan Last 24 Hours: My Active Orders 03/18/21 22:30 Oxybutynin 5 mg PO DAILY 03/18/21 22:45 Dextrose 5%-0.45% NaCl [Dextrose 5%-1/2 NS] 1,000 ml IV ASDIRECTED 03/19/21 09:15 Dextrose 5%-0.45% NaCl [Dextrose 5%-1/2 NS] 1,000 ml IV ASDIRECTED 03/19/21 10:00 Levothyroxine [Synthroid] 100 mcg PO DAILY@0600 03/19/21 18:51 BLOOD GAS VENOUS [BG] Stat 03/19/21 18:52 BASIC METABOLIC PANEL,BMP [CHEM] Stat 03/19/21 19:30 Sodium Chloride 0.45% @ 100 MLS/HR(1,000ml) Sodium Chloride 0.45% 1,000 ml IV ASDIRECTED 03/19/21 21:00 Mirtazapine [Remeron] 30 mg PO BEDTIME Pramipexole [Mirapex] 0.5 mg PO BEDTIME
--- NOTE | 2021-03-18 16:02 | CT ---
INDICATION: Confusion. CT HEAD WITHOUT CONTRAST: Spiral 3.75 mm axial sections were obtained through the brain without contrast with axial, sagittal and coronal reconstructions 03/18/21 and compared with 12/28/20. TOTAL EXAM DLP: 1322.30 mGy/cm. There is clearing of the air-fluid level seen in the right maxillary antrum on the previous study with residual irregular thickening of the lining of the right maxillary antrum, which may represent a mild chronic sinusitis or residual from that previous examination. There is partial opacification with marked thickening of the lining of the left sphenoidal air cell seen previously and likely representing chronic sinusitis. Some thickened linings of ethmoidal air cells are noted on the right with thickening of the lining and some septated material in the right frontal air cell, likely representing residual of previous sinusitis. The right-sided mastoid air cells are well aerated. On the left, there are a few of the mastoid air cells that are partially or completely opacified, raising question of mastoiditis to a mild degree on the left. No definite cranial abnormality was identified. Internal carotid artery calcifications are noted. Lacunar infarct is again noted at the right thalamus with some minimal calcifications noted in basal ganglia, most likely not of clinical significance. A left parietal white matter low-density abnormality is compatible with a previous subcortical infarct. No other definite abnormal areas of density were identified - no bleeding site or hematoma was seen. No shift of midline structures or ventricular abnormalities were identified. IMPRESSION: 1. No definite acute intracranial abnormality identified. 2. Chronic sinusitis suggested, paranasal sinuses, as noted above and possibly minimally at the left mastoid air cells. 3. Lacunar infarct right thalamus. 4. White matter changes compatible with subcortical infarct and microvascular disease with little change from the previous study, allowing for changes in positioning. Report was called to Dr. Gray at approximately 1526 hours, 03/18/21. [facility]ITALRon[facility]
--- NOTE | 2021-03-18 16:06 | CR ---
INDICATION: Confusion and short of breath. CHEST: PA and lateral views of the chest were obtained 03/18/21 and compared with 12/23/20. There are some linear densities at both lung bases, which may represent fibrosis or possibly some minimal linear atelectasis. A definite active infiltrate or effusion was not identified. Loop recorder is again seen overlying the left heart. The heart appears somewhat prominent in size. There may be some mild left ventricular enlargement. The aorta is tortuous with calcification in the arch. Bony structures appear to be grossly intact. IMPRESSION: 1. No definite acute process, but cannot exclude some minimal linear atelectasis at both lung bases versus fibrosis. 2. ASHD with cardiomegaly. No definite CHF. Report was called to Dr. Gray at 1526 hours, 03/18/21. [facility]
[2021-03-18] MEDS ORDERED: Sodium Polystyrene Sulfonate 15 GM/60 ML Susp 60 ML Bot PO ONE (16:24)
[2021-03-18] MEDS ORDERED: Acetaminophen 500 MG Tab PO ONE (16:25)
[2021-03-18 16:42] LABS: BASE EXCESS VENOUS,POC -7 mmol/L (-2 - 3+); PCO2 VENOUS,POC 37 mmHg (41-51); PH VENOUS,POC 7.31 pH Units (7.32-7.43)
[2021-03-18] MEDS ORDERED: cefTRIAXone 2 GM Vial IVPUSH ONE (18:46)
[2021-03-18] MEDS ORDERED: Temazepam 15 MG Cap PO ONE (22:26)
[2021-03-18] MEDS ORDERED: cefTRIAXone 1 GM Vial ONE (22:35)
[2021-03-18] MEDS ORDERED: Dextrose 5%-0.45% NaCl 1,000 ML IV SCH (22:45)
[2021-03-18] MEDS: Oxybutynin 5 MG Tab PO SCH (23:20)
--- NOTE | 2021-03-19 08:11 | CT ---
CT ABDOMEN AND PELVIS WITHOUT CONTRAST INDICATION: Complains of confusion, acute uremia. Creatinine 16.3, was 1.5 from three months prior. TECHNIQUE: Spiral 2.5 mm axial sections were obtained through the abdomen and pelvis without contrast with sagittal and coronal reconstructions, 03/18/21 and compared with 12/23/20. TOTAL EXAM DLP: 1035.02 mGy/cm. FINDINGS: Multiple linear densities are noted in the area of the right middle lobe with thickening of the major fissure on the right near the lung base and to a lesser extent on the left with somewhat linear densities at the lingula, also noted. The findings are most suggestive of subsegmental atelectatic changes. The heart is enlarged. No pericardial effusion was seen. There is again noted a triangular-shaped calculus in the midpole of the right kidney, which is nonobstructive. A very tiny calculus is noted at the lower pole of the left kidney, also nonobstructive. No evidence of obstructive uropathy is noted. A definite renal mass was not seen. The adrenal glands, spleen and pancreas were unremarkable, as well as the common bile duct. The gallbladder is absent, compatible with history of its removal. No retroperitoneal mass was seen. Retroperitoneal lymphadenopathy is mild and nonspecific. No aneurysmic dilatation of the aorta was noted. There is however noted aneurysmic dilatation of the common iliac artery on the right with a diameter of approximately 30 mm. This appears stable compared with the previous study. Ballesteros catheter is noted in place in the urinary bladder, which is completely collapsed around the fluid-filled Ballesteros catheter bulb. Hypertrophic degenerative changes and vacuum disc phenomena are noted at the L4- 5 and L5-S1 levels, similar to the previous study, with very minimal retrolisthesis at L4-5. The appendix is absent, compatible with history of its removal. No evidence of bowel obstruction or free air was identified in the abdomen or pelvis. There is noted a tiny umbilical hernia, including only fat, which was present previously. The apparent colitis present in the transverse and descending colon has resolved. There are a few diverticula in the proximal descending colon and apparently in the sigmoid colon. The sigmoid colon was not ideally visualized and appears quite redundant. No definite diverticulitis is seen. No additional organomegaly, mass lesions or free fluid collections were identified in the abdomen or pelvis. 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 ASD with arterial calcifications. Degenerative changes and disc disease L4 through S1. Post cholecystectomy, post appendectomy. Renal calcinosis - minimal and nonobstructive. Diverticulosis coli without definite evidence of diverticulitis. Resolution of previous colitis. Ballesteros catheter in place. Parenchymal changes in the lung bases, most of which is likely subsegmental atelectatic in nature and possibly minimal fibrosis. ASHD with mild cardiomegaly. Report was called to Dr. Gray at 1743 hours. [facility]
[2021-03-19] MEDS ORDERED: Propranolol 80 MG Cap.ER PO ONE (09:11)
[2021-03-19] MEDS ORDERED: Dextrose 5%-0.45% NaCl 1,000 ML IV SCH (09:15)
[2021-03-19] MEDS: Oxybutynin 5 MG Tab PO SCH (09:22)
[2021-03-19] MEDS: Levothyroxine 100 MCG Tab PO SCH (09:40)
[2021-03-19] MEDS ORDERED: Ondansetron 4 MG/2 ML SDV IVPUSH ONE ×2 (12:13→18:18)
[2021-03-19] MEDS ORDERED: Acetaminophen 500 MG Tab PO ONE ×2 (15:18→16:02)
[2021-03-19 19:42] LABS: BASE EXCESS VENOUS,POC -10 mmol/L (-2 - 3+); PCO2 VENOUS,POC 50 mmHg (41-51); PH VENOUS,POC 7.16 pH Units (7.32-7.43)
[2021-03-19] MEDS ORDERED: Pramipexole 0.25 MG Tab PO SCH (21:00)
[2021-03-19] MEDS ORDERED: Mirtazapine 30 MG Tab PO SCH (21:00)
[2021-03-19] MEDS ORDERED: Sodium Bicarbonate 8.4% 50 MEQ/50 ML Syringe IVPUSH ONE (21:57)
[2021-03-19] MEDS: Sodium Chloride 0.45% 1,000 ML IV SCH (22:20)
--- NOTE | 2021-03-20 | PCM.SN.2 ---
- Free Text/Narrative Note: 03/19/21 7:35 PM: 66-year-old female who has been in this emergency department for approximately 30 hours who presented and was seen by Dr. Heron polo. Please see his note in regard to this. Briefly, she has acute renal failure with creatinine in the 16 range. She also has anemia. She also has metabolic acidosis with a pH initially of 7.31 but a pH this afternoon of 7.16. Care was turned over to me by Dr. Gray is 7 PM. Apparently he had been trying to place the patient locally and had actually talked to the funeral home associate at [facility] in [place] this late evening. The funeral home associate did not feel that the patient needed urgent dialysis and there were no beds available at [facility] in [place] and they would not accept the patient. The funeral home associate did feel that the patient would need dialysis but just not emergently. Therefore, he stated that he could not make any accommodations to facilitate the patient to be transferred to [facility] in [place]. The patient, apparently, had been rather restrictive in the places that she would be transferred and had not let the physician call outside of our local area. Dr. Gray had called [facility] in [place] and apparently there were no beds available. He had call [facility] in [place] and there were no beds available and he had also called [facility] and apparently they do not do inpatient dialysis and would not be able to accept the patient. He also called [facility] and they had no beds available. The patient is awake and alert. She has a frequent cough. She tells me that she "feels bad all over. She also tells me that she began to feel bad about a month ago and really didn't know what was causing it and over the past 2 days she has had worsening of her symptoms and increasing fatigue with no appetite and feels like she can't eat anything. She has been drinking liquids. She also tells me that she has been having urine output as well. She does feel rather puffy all over and feels bloated. Physical examination: The patient's pulses in the 80s. Blood pressure is in the 140s systolic. The O2 saturation was 96% on room air. She does appear to be quite edematous all over. She has a very puffy face and puffy arms and puffy legs. Her pharynx has somewhat dry mucous membranes. Her chest shows bilateral breath sounds apparent but there are crackles in the bases about fci up. Not had any increased work of breathing. Heart there is a regular rate and rhythm without gallop. Soft but there is some edema here as well. Bowel sounds are present and there is no tenderness. Neurologic she moves all extremities well and there are no focal deficits. Catheter is in place and producing clear urine. Diagnostic data: I repeated his blood gas did show a pH of 7.16 this afternoon compared to a pH of 7.31 yesterday. The PCO2 is 50. The potassium was 5.3. The creatinine is 15.8. The glucose was 189. The bicarbonate was 18. Assessment: Acute renal failure not improving with IV fluid therapy. Worsening metabolic acidosis. Plan: We will continue to treat patient within the limits of our facility. We will also continue to try to find placement for the patient. I discussed this at length with the patient and have recommended that we broadened our search and try to find any stool that would be able to accept her for treatment worsening condition and also because we do not have the services available to care for this patient. We have clearly informed our local referral hospitals that we do not have the necessary specially services to ultimately managed this patient in that the patient needs transfer. I agreed with this but have continued to tell us that they do not have any beds available at this time and cannot accept the patient. The patient will now allow me to discuss her case with any hospital that would potentially have a bed for her. 8 PM: I discussed the patient's case with [facility] in [place] and they have told me that they will place the patient on a list for bed except as but they do not have any beds available at this time. They state that they continually reassess but do not feel that there would be any change in this until tomorrow some time. 8:10 PM: I called the transfer line at [facility] and there are no beds available at this facility. They would not be able to accept the patient. 8:27 PM: I called [facility] and talked to the warehouse administrator. They apparently do not do inpatient dialysis and would not be able to accept the patient. 8:50 PM: I discussed the patient's case with the intake nurse at [facility] in [place] and they do not have any beds available. They did ask us to call back in the morning as they may have some beds available in the day and would reassess his situation then. 8:56 PM: I discussed the patient's case with the intake nurse at [facility] and they do not have any beds available. They also report that there are no beds available in any of the hospitals that surround them as well. 9:05 PM: I discussed the patient's case with the nursing nutritional yeast supervisor at [facility] and they do not do inpatient dialysis and would not be able to accept the patient. 9:30 PM: I discussed the patient's case with the [facility] [place] [facility] transfer line. They took the patient's information and they stated that they would be trying to find an available bed for us and would call us back if they were able to find a hospital with an available bed that would be able to accept the patient. The patient continues to remain hemodynamically stable. She has a frequent cough. Her O2 saturations are maintaining in the 94-97% range. Her blood pressure is maintaining stable as well. It had been recommended by the funeral home associate at [facility] in [place] to give the patient half-normal saline with 1.5 A of bicarbonate per liter at 100 mL per hour. We will continue this recommended therapy. He had told Dr. Gray that there was nothing else that he would be able to recommended this time. 03/20/21 : 12:15 AM: Patient is remaining hemodynamically stable. She does appear to be more edematous. She is still putting out clear urine via Ballesteros. Her O2 saturations are maintaining in the 94-97% range. I have had no call from the [facility] transfer person. We will continue to monitor the patient and treat the patient as previous. I have ordered repeat CBC, BMP, magnesium and venous blood gas in the morning. 03/20/21 8:05 AM: Patient has remained hemodynamically and respiratory stable through the night. She does seem to have diffuse swelling that is somewhat worse. She will have urine output. She was complaining of a global headache this morning and was treated with Tylenol. She did sleep most of the night but complains that she was restless during the sleep. Her morning labs are still pending. We had received a call from the [facility] transfer line at 3 AM and were told to call [facility] at 7 to 8 AM and they would most probably have a bed but with a slight delay. I did call and discuss it with the [facility] access line and [facility] does have a bed and would be able to accept the patient with the bed being available in 2-4 hours. I discussed the patient's case with Dr. Vides, hospitalist at [facility], and he has agreed to accept the patient in transfer. We will continue cares present. I am awaiting the patient's laboratory tests. I will discuss this with the patient. 03/20/21 9:40 AM: The patient's pH is back up to 7.31. Her bicarbonate is 20 now on her chemistries. Her creatinine is 15.9. I discussed the transfer with the patient and with her . They're in agreement with the plan for transfer. We will continue therapy as present and continue close monitoring of the patient. 03/20/21 10:50 AM: The [facility] access Center for [facility] called and did report that we could send the patient at present and that we could attempt to arrange transport of present as well. The nursing staff had contacted [facility] ambulance and they would be able to transport the patient to [facility]. We are awaiting their arrival and the patient will be transferred to [facility] via ambulance for direct admission with Dr. Vides accepting. The patient remains hemodynamically stable at present. She is having no significant respiratory issues of present. Time Documentation
[2021-03-20] MEDS ORDERED: Acetaminophen 500 MG Tab PO ONE (06:22)
[2021-03-20] MEDS: Levothyroxine 100 MCG Tab PO SCH (06:29)
[2021-03-20 08:51] LABS: BASE EXCESS VENOUS,POC -6 mmol/L (-2 - 3+); PCO2 VENOUS,POC 40 mmHg (41-51); PH VENOUS,POC 7.31 pH Units (7.32-7.43)
[2021-03-20] MEDS: Sodium Chloride 0.45% 1,000 ML IV SCH (09:38)
[2021-03-20 09:44] VITALS: BP 150/85; PULSE 74
[2021-03-20] MEDS: Oxybutynin 5 MG Tab PO SCH (10:26)
== END 2021-03-20 11:45 | disposition home or self-care (01) ==
LOC: FB.ED 13:41
DX: N39.0 Urinary tract infection, site not specified (principal); N17.9 Acute kidney failure, unspecified; E86.0 Dehydration; D64.9 Anemia, unspecified; E87.5 Hyperkalemia; R79.82 Elevated C-reactive protein (CRP); E80.6 Other disorders of bilirubin metabolism; E88.09 Other disorders of plasma-protein metabolism, not elsewhere classified; E78.00 Pure hypercholesterolemia, unspecified; K21.9 Gastro-esophageal reflux disease without esophagitis; E03.9 Hypothyroidism, unspecified; Z79.899 Other long term (current) drug therapy; Z86.73 Personal history of transient ischemic attack (TIA), and cerebral infarction without residual deficits; Z88.8 Allergy status to other drugs, medicaments and biological substances; Z20.822 Contact with and (suspected) exposure to COVID-19
CPT/HCPCS: 36415; 51702; 70450; 71046; 74176; 80048; 80053; 81001; 83735; 84443; 84484; 85025; 86140; 87086; 87651; 87804; 93005; 96374; 96375; 96376; 99285; A9270; J0696; J2405; J3490; J7030; J7042; U0002

== ENCOUNTER 2021-12-23 19:44 | Emergency (ER) | payer MEDICARE, OTHER ==
[2021-12-23] MEDS ORDERED: Metoclopramide 10 MG/2 ML SDV IVPUSH ONE (20:53)
[2021-12-23] MEDS ORDERED: Ketorolac 30 MG/ML SDV IVPUSH ONE (20:53)
[2021-12-23] MEDS ORDERED: methylPREDNISolone Sodium Succinate 125 MG/2 ML SDV IVPUSH ONE (20:53)
[2021-12-23 21:24] LABS: ESTIMATED GFR 38 mL/min (>60)
[2021-12-23] MEDS ORDERED: diphenhydrAMINE 50 MG/ML SDV IVPUSH ONE (22:11)
[2021-12-23] MEDS ORDERED: Loratadine 10 MG Tab PO ONE (22:11)
[2021-12-23] MEDS ORDERED: Acetaminophen 500 MG Tab PO ONE (22:11)
[2021-12-23] MEDS ORDERED: cefTRIAXone 500 MG Vial IVPUSH ONE (22:12)
[2021-12-23 23:09] VITALS: BP 138/82; PULSE 78
== END 2021-12-23 22:45 | disposition home or self-care (01) ==
LOC: FB.ED 19:44
DX: J32.4 Chronic pansinusitis (principal); D72.829 Elevated white blood cell count, unspecified; N18.9 Chronic kidney disease, unspecified; E78.00 Pure hypercholesterolemia, unspecified; E66.9 Obesity, unspecified; Z68.31 Body mass index [BMI] 31.0-31.9, adult; Z88.8 Allergy status to other drugs, medicaments and biological substances; Z79.899 Other long term (current) drug therapy; Z86.73 Personal history of transient ischemic attack (TIA), and cerebral infarction without residual deficits; Z90.49 Acquired absence of other specified parts of digestive tract
CPT/HCPCS: 36415; 70450; 80053; 85025; 86140; 96374; 96375; 99284; A9270; J0696; J1200; J1885; J2765; J2930; 99283

== ENCOUNTER 2022-08-31 07:19 | Emergency (ER) | payer MEDICARE, OTHER ==
[2022-08-31 08:43] LABS: ESTIMATED GFR 50 mL/min (>60)
[2022-08-31 20:19] VITALS: BP 107/73; PULSE 60
== END 2022-08-31 10:46 | disposition home or self-care (01) ==
LOC: FB.ED 07:19
DX: R34 Anuria and oliguria (principal); J45.909 Unspecified asthma, uncomplicated; E78.00 Pure hypercholesterolemia, unspecified; E03.9 Hypothyroidism, unspecified; E66.9 Obesity, unspecified; Z79.899 Other long term (current) drug therapy; Z88.1 Allergy status to other antibiotic agents; Z68.32 Body mass index [BMI] 32.0-32.9, adult
CPT/HCPCS: 36415; 71046; 80053; 81001; 83605; 83735; 85025; 86140; 87040; 87086; 99283; C1758

== ENCOUNTER 2023-02-08 10:04 | Emergency (ER) | payer MEDICARE, OTHER ==
[2023-02-08 10:40] VITALS: BP 132/74; PULSE 64
== END 2023-02-08 11:40 | disposition home or self-care (01) ==
LOC: FB.ED 10:04
DX: S63.502A Unspecified sprain of left wrist, initial encounter (principal); E78.00 Pure hypercholesterolemia, unspecified; J45.909 Unspecified asthma, uncomplicated; N18.9 Chronic kidney disease, unspecified; E03.9 Hypothyroidism, unspecified; E66.9 Obesity, unspecified; Z79.01 Long term (current) use of anticoagulants; Z88.1 Allergy status to other antibiotic agents; Z79.899 Other long term (current) drug therapy; W18.30XA Fall on same level, unspecified, initial encounter; Y92.009 Unspecified place in unspecified non-institutional (private) residence as the place of occurrence of the external cause
CPT/HCPCS: 73110-LT; 99283

== ENCOUNTER 2023-06-01 04:34 | Emergency (ER) | payer MEDICARE, OTHER ==
[2023-06-01] MEDS ORDERED: Meclizine 25 MG Tab PO ONE (05:25)
[2023-06-01] MEDS ORDERED: traMADol 50 MG Tab PO ONE (05:25)
[2023-06-01] MEDS ORDERED: Ondansetron 4 MG Tab.DIS PO ONE (06:13)
[2023-06-01] MEDS ORDERED: Acetaminophen/oxyCODONE 325-5 MG Tab PO PRN (06:13)
[2023-06-01 07:07] VITALS: BP 151/84; PULSE 64
[2023-06-01] MEDS ORDERED: hydrOXYzine HCl 50 MG/ML SDV IM ONE (08:09)
[2023-06-01] MEDS ORDERED: Ketorolac 30 MG/ML SDV IM ONE (08:09)
== END 2023-06-01 08:29 | disposition home or self-care (01) ==
LOC: FB.ED 04:34
DX: M54.2 Cervicalgia (principal); G43.909 Migraine, unspecified, not intractable, without status migrainosus; R42 Dizziness and giddiness; E78.00 Pure hypercholesterolemia, unspecified; K21.9 Gastro-esophageal reflux disease without esophagitis; E03.9 Hypothyroidism, unspecified; Z79.01 Long term (current) use of anticoagulants; Z79.899 Other long term (current) drug therapy; Z88.1 Allergy status to other antibiotic agents
CPT/HCPCS: 72050; 96372; 99284; A9270; J1885; J3410; Q0162

== ENCOUNTER 2023-06-01 19:38 | Emergency (ER) | payer MEDICARE, OTHER ==
[2023-06-01] MEDS ORDERED: Doxycycline 100 MG Tab PO ONE (19:39)
[2023-06-01] MEDS ORDERED: Sodium Chloride 0.9% 10 ML Syringe FLUSH PRN (19:45)
[2023-06-01] MEDS ORDERED: Ondansetron 4 MG/2 ML SDV IVPUSH ONE (19:49)
[2023-06-01] MEDS ORDERED: HYDROmorphone 2 MG/ML SDV IVPUSH ONE ×2 (19:49→21:06)
[2023-06-01] MEDS ORDERED: diphenhydrAMINE 50 MG/ML SDV IVPUSH ONE (19:49)
[2023-06-01] MEDS ORDERED: Sodium Chloride 0.9% 1,000 ML IV SCH (20:00)
[2023-06-01 20:13] LABS: BASOPHILS ABSOLUTE AUTO 0.1 x10-3/uL (0.0-0.1); BASOPHILS PERCENT AUTO 0.9 % (0.2-1.5); EOSINOPHILS ABSOLUTE AUTO 0.2 x10-3/uL (0.0-0.8); EOSINOPHILS PERCENT AUTO 2.8 % (0.6-8.1); HEMATOCRIT 37.8 % (34.2-48.2); HEMOGLOBIN 12.6 g/dL (11.4-15.5); LYMPHOCYTES ABSOLUTE AUTO 2.4 x10-3/uL (1.0-4.4); LYMPHOCYTES PERCENT AUTO 28.4 % (18.4-52.1); MEAN CORPUSCULAR HEMOGLOBIN 31.1 pg (23.9-33.9); MEAN CORPUSCULAR HGB CONC 33.3 g/dL (31.9-34.8); MEAN CORPUSCULAR VOLUME 93.3 fL (76.7-100.5); MEAN PLATELET VOLUME 7.4 fL (7.1-12.4); MONOCYTES ABSOLUTE AUTO 0.7 x10-3/uL (0.3-1.0); MONOCYTES PERCENT AUTO 8.6 % (4.4-15.7); NEUTROPHILS ABSOLUTE AUTO 4.9 x10-3/uL (1.5-6.3); NEUTROPHILS PERCENT AUTO 59.3 % (30.8-76.2); PLATELET COUNT,PLT 262 x10(3)uL (151-488); RED BLOOD CELL COUNT 4.05 x10(6)uL (3.60-5.20); RED CELL DISTRIBUTION WIDTH 15.1 % (12.3-16.5); WHITE BLOOD CELL COUNT,WBC 8.3 x10-3/uL (3.0-10.3)
[2023-06-01 20:14] LABS: BLOOD UREA NITROGEN,BUN 15 mg/dL (7-18); BUN/CREATININE RATIO 11.5 (9-20); CALCIUM 9.8 mg/dL (8.6-10.2); CARBON DIOXIDE,CO2 34 mmol/L (21-32); CHLORIDE,CL 103 mmol/L (100-110); CREATININE 1.3 mg/dL (0.55-1.02); ESTIMATED GFR 45 mL/min (>60); GLUCOSE RANDOM 136 mg/dL (80-116); SODIUM,NA 140 mmol/L (135-145)
[2023-06-01] MEDS ORDERED: Metoclopramide 10 MG/2 ML SDV IVPUSH ONE (21:06)
[2023-06-01 22:57] VITALS: BP 151/93; PULSE 63
== END 2023-06-01 22:57 | disposition home or self-care (01) ==
LOC: FB.ED 19:38
DX: J32.9 Chronic sinusitis, unspecified (principal); E78.00 Pure hypercholesterolemia, unspecified; J45.909 Unspecified asthma, uncomplicated; E03.9 Hypothyroidism, unspecified; E66.9 Obesity, unspecified; Z95.1 Presence of aortocoronary bypass graft; Z95.5 Presence of coronary angioplasty implant and graft; Z90.49 Acquired absence of other specified parts of digestive tract; Z79.899 Other long term (current) drug therapy; Z88.8 Allergy status to other drugs, medicaments and biological substances; M54.2 Cervicalgia; G43.909 Migraine, unspecified, not intractable, without status migrainosus; R42 Dizziness and giddiness; K21.9 Gastro-esophageal reflux disease without esophagitis; Z79.01 Long term (current) use of anticoagulants; Z88.1 Allergy status to other antibiotic agents
CPT/HCPCS: 36415; 70450; 72050; 80048; 85025; 93010; 96361; 96372; 96374; 96375; 96376; 99284; A9270; J1170; J1200; J1885; J2405; J2765; J3410; J7030; Q0162

== ENCOUNTER 2024-12-14 10:01 | Emergency (ER) | payer MEDICARE, OTHER ==
[2024-12-14 10:07] VITALS: BP 117/68; PULSE 66
[2024-12-14 10:47] LABS: BASOPHILS ABSOLUTE AUTO 0.0 x10-3/uL (0.0-0.1); BASOPHILS PERCENT AUTO 0.4 % (0.2-1.5); EOSINOPHILS ABSOLUTE AUTO 0.3 x10-3/uL (0.0-0.8); EOSINOPHILS PERCENT AUTO 2.7 % (0.6-8.1); LYMPHOCYTES ABSOLUTE AUTO 1.7 x10-3/uL (1.0-4.4); LYMPHOCYTES PERCENT AUTO 13.8 % (18.4-52.1); MEAN PLATELET VOLUME 6.2 fL (7.1-12.4); MONOCYTES ABSOLUTE AUTO 1.2 x10-3/uL (0.3-1.0); MONOCYTES PERCENT AUTO 9.7 % (4.4-15.7); NEUTROPHILS ABSOLUTE AUTO 9.0 x10-3/uL (1.5-6.3); NEUTROPHILS PERCENT AUTO 73.4 % (30.8-76.2); PLATELET COUNT,PLT 176 x10(3)uL (151-488); RED BLOOD CELL COUNT 3.75 x10(6)uL (3.60-5.20); RED CELL DISTRIBUTION WIDTH 16.0 % (12.3-16.5); WHITE BLOOD CELL COUNT,WBC 12.3 x10-3/uL (3.0-10.3)
[2024-12-14 10:58] LABS: A/G RATIO 0.6; ALANINE AMINOTRANSFERASE,ALT 10 U/L (12-36); ASPARTATE AMNIOTRANSFERASE,AST 13 IU/L (5-25); BILIRUBIN TOTAL 1.0 mg/dL (0.1-1.3); BLOOD UREA NITROGEN,BUN 45 mg/dL (7-18); CARBON DIOXIDE,CO2 23 mmol/L (21-32); CHLORIDE,CL 103 mmol/L (100-110); EST CRCL DRUG DOSING (CG) 10.42 mL/min; ESTIMATED GFR 10 mL/min (>60); GLUCOSE RANDOM 86 mg/dL (80-116); POTASSIUM,K 5.8 mmol/L (3.5-5.3); PROTEIN TOTAL,TP 7.7 g/dL (6.0-8.0); SODIUM,NA 136 mmol/L (135-145)
[2024-12-14 11:02] LABS: LACTIC ACID 1.6 mmol/L (0.4-2.0)
[2024-12-14 11:24] LABS: CREATININE 4.4 mg/dL (0.55-1.02)
[2024-12-14] MEDS: Sodium Chloride 0.9% 10 ML Syringe FLUSH PRN (11:40)
[2024-12-14 11:55] LABS: GLUCOSE,URINE 100 mg/dL (NORMAL); OCCULT BLOOD,URINE LARGE (NEGATIVE)
[2024-12-14 11:56] LABS: APPEARANCE,URINE CLOUDY (CLEAR)
[2024-12-14 12:06] LABS: SQUAMOUS EPITHELIAL CELLS,UR RARE (NS,R,O)
[2024-12-14 12:07] LABS: FINE GRANULAR CASTS,URINE FEW (NS)
== END 2024-12-14 13:37 ==
LOC: FB.ED 10:01
DX: J18.9 Pneumonia, unspecified organism (principal); E87.5 Hyperkalemia; N17.9 Acute kidney failure, unspecified; N18.5 Chronic kidney disease, stage 5; E78.00 Pure hypercholesterolemia, unspecified; E66.9 Obesity, unspecified; E03.9 Hypothyroidism, unspecified; J45.909 Unspecified asthma, uncomplicated; M19.90 Unspecified osteoarthritis, unspecified site; Z88.8 Allergy status to other drugs, medicaments and biological substances; Z79.899 Other long term (current) drug therapy; Z90.49 Acquired absence of other specified parts of digestive tract; Z68.32 Body mass index [BMI] 32.0-32.9, adult
CPT/HCPCS: 36415; 51701; 70450; 71250; 74176; 80053; 81001; 83605; 83690; 85025; 86140; 87086; 87088; 96361; 96374; 99285; A9270; J0696; J7030; 87186

== ENCOUNTER 2025-04-19 02:06 | Emergency (ER) | payer MEDICARE, OTHER ==
[2025-04-19 02:42] LABS: MEAN PLATELET VOLUME 7.3 fL (7.1-12.4); PLATELET COUNT,PLT 163 x10(3)uL (151-488); RED BLOOD CELL COUNT 3.78 x10(6)uL (3.60-5.20); RED CELL DISTRIBUTION WIDTH 17.1 % (12.3-16.5); WHITE BLOOD CELL COUNT,WBC 15.7 x10-3/uL (3.0-10.3)
[2025-04-19 02:54] LABS: BAND PERCENT MAN 3 % (0-6); EOSINOPHILS PERCENT MAN 3 % (0-5); LYMPHOCYTES PERCENT MAN 15 % (13-37); MONOCYTES PERCENT MAN 8 % (4-12); SEG NEUTROPHILS PERCENT MAN 71 % (46-82)
[2025-04-19 02:55] LABS: A/G RATIO 0.6; ALANINE AMINOTRANSFERASE,ALT 12 U/L (12-36); ASPARTATE AMNIOTRANSFERASE,AST 15 IU/L (5-25); BILIRUBIN TOTAL 0.7 mg/dL (0.1-1.3); BLOOD UREA NITROGEN,BUN 32 mg/dL (7-18); CARBON DIOXIDE,CO2 26 mmol/L (21-32); CHLORIDE,CL 100 mmol/L (100-110); ESTIMATED GFR 26 mL/min (>60); GLUCOSE RANDOM 134 mg/dL (80-116); POTASSIUM,K 4.8 mmol/L (3.5-5.3); PROTEIN TOTAL,TP 8.4 g/dL (6.0-8.0); SODIUM,NA 136 mmol/L (135-145)
[2025-04-19 02:57] LABS: CREATININE 2.0 mg/dL (0.55-1.02)
[2025-04-19 03:04] LABS: PRO B-TYPE NATRIUR PEPT,BNPPRO 1406.0 pg/mL (<=125)
[2025-04-19 03:10] LABS: GLUCOSE,URINE NORMAL (NORMAL); OCCULT BLOOD,URINE LARGE (NEGATIVE)
[2025-04-19 03:16] LABS: APPEARANCE,URINE SLIGHTLY CLOUDY (CLEAR)
[2025-04-19 03:17] LABS: COARSE GRANULAR CASTS,URINE FEW (NS); SQUAMOUS EPITHELIAL CELLS,UR MODERATE (NS,R,O)
[2025-04-19 03:29] LABS: AMPHETAMINES SCREEN, URINE NEGATIVE (NEGATIVE); METHADONE SCREEN, URINE NEGATIVE (NEGATIVE); METHAMPHETAMINE SCREEN, URINE NEGATIVE (NEGATIVE); OXYCODONE SCREEN,URINE NEGATIVE (NEGATIVE)
[2025-04-19 03:30] LABS: BUPRENORPHINE SCREEN,URINE NEGATIVE (NEGATIVE)
[2025-04-19 04:33] VITALS: BP 134/91; PULSE 86
== END 2025-04-19 04:16 | disposition home or self-care (01) ==
LOC: FB.ED 02:06
DX: F32.9 Major depressive disorder, single episode, unspecified (principal); E78.00 Pure hypercholesterolemia, unspecified; J45.909 Unspecified asthma, uncomplicated; K21.9 Gastro-esophageal reflux disease without esophagitis; Z88.8 Allergy status to other drugs, medicaments and biological substances; Z79.899 Other long term (current) drug therapy; Z79.890 Hormone replacement therapy; Z90.49 Acquired absence of other specified parts of digestive tract
CPT/HCPCS: 36415; 70450; 71045; 80053; 80307; 81001; 83605; 83880; 84484; 85025; 86140; 93005; 96360; 99285; J7040

== ENCOUNTER 2025-04-20 10:37 | Inpatient (IN) | payer MEDICARE, OTHER ==
[2025-04-20 13:18] LABS: GLUCOSE,URINE NORMAL (NORMAL); OCCULT BLOOD,URINE LARGE (NEGATIVE)
[2025-04-20 13:19] LABS: APPEARANCE,URINE CLOUDY (CLEAR)
[2025-04-20 13:20] LABS: BASOPHILS ABSOLUTE AUTO 0.0 x10-3/uL (0.0-0.1); BASOPHILS PERCENT AUTO 0.3 % (0.2-1.5); EOSINOPHILS ABSOLUTE AUTO 0.2 x10-3/uL (0.0-0.8); EOSINOPHILS PERCENT AUTO 1.8 % (0.6-8.1); LYMPHOCYTES ABSOLUTE AUTO 1.4 x10-3/uL (1.0-4.4); LYMPHOCYTES PERCENT AUTO 11.1 % (18.4-52.1); MEAN PLATELET VOLUME 7.2 fL (7.1-12.4); MONOCYTES ABSOLUTE AUTO 1.0 x10-3/uL (0.3-1.0); MONOCYTES PERCENT AUTO 7.7 % (4.4-15.7); NEUTROPHILS ABSOLUTE AUTO 9.9 x10-3/uL (1.5-6.3); NEUTROPHILS PERCENT AUTO 79.1 % (30.8-76.2); PLATELET COUNT,PLT 168 x10(3)uL (151-488); RED CELL DISTRIBUTION WIDTH 17.0 % (12.3-16.5); WHITE BLOOD CELL COUNT,WBC 12.5 x10-3/uL (3.0-10.3)
[2025-04-20 13:22] LABS: BLOOD UREA NITROGEN,BUN 31 mg/dL (7-18); CARBON DIOXIDE,CO2 27 mmol/L (21-32); CHLORIDE,CL 103 mmol/L (100-110); CREATININE 1.8 mg/dL (0.55-1.02); EST CRCL DRUG DOSING (CG) 25.11 mL/min; ESTIMATED GFR 30 mL/min (>60); GLUCOSE RANDOM 109 mg/dL (80-116); POTASSIUM,K 4.8 mmol/L (3.5-5.3); SODIUM,NA 140 mmol/L (135-145)
[2025-04-20 13:27] LABS: EPITHELIAL CELLS,URINE RARE
[2025-04-20 13:28] LABS: A/G RATIO 0.6; ALANINE AMINOTRANSFERASE,ALT 27 U/L (12-36); ASPARTATE AMNIOTRANSFERASE,AST 26 IU/L (5-25); BILIRUBIN TOTAL 0.4 mg/dL (0.1-1.3); PROTEIN TOTAL,TP 8.1 g/dL (6.0-8.0)
[2025-04-20 13:47] LABS: RED BLOOD CELL COUNT 3.32 x10(6)uL (3.60-5.20)
[2025-04-20] MEDS ORDERED: Meropenem 1 GM SDV IVPUSH ONE (13:54)
[2025-04-20] MEDS: Sodium Chloride 0.9% 10 ML Syringe FLUSH PRN (14:20)
[2025-04-20] MEDS ORDERED: Ondansetron 4 MG Tab.DIS PO PRN (18:42)
[2025-04-20] MEDS: Albuterol 0.083% 2.5 MG/3 ML Neb Soln INH SCH (21:22)
[2025-04-20] MEDS ORDERED: Albuterol 0.083% 2.5 MG/3 ML Neb Soln INH PRN (21:23)
[2025-04-21 06:43] LABS: BASOPHILS ABSOLUTE AUTO 0.0 x10-3/uL (0.0-0.1); BASOPHILS PERCENT AUTO 0.3 % (0.2-1.5); EOSINOPHILS ABSOLUTE AUTO 0.2 x10-3/uL (0.0-0.8); EOSINOPHILS PERCENT AUTO 2.3 % (0.6-8.1); LYMPHOCYTES ABSOLUTE AUTO 1.5 x10-3/uL (1.0-4.4); LYMPHOCYTES PERCENT AUTO 15.5 % (18.4-52.1); MEAN PLATELET VOLUME 7.0 fL (7.1-12.4); MONOCYTES ABSOLUTE AUTO 0.9 x10-3/uL (0.3-1.0); MONOCYTES PERCENT AUTO 9.3 % (4.4-15.7); NEUTROPHILS ABSOLUTE AUTO 7.0 x10-3/uL (1.5-6.3); NEUTROPHILS PERCENT AUTO 72.6 % (30.8-76.2); PLATELET COUNT,PLT 153 x10(3)uL (151-488); RED CELL DISTRIBUTION WIDTH 16.8 % (12.3-16.5); WHITE BLOOD CELL COUNT,WBC 9.7 x10-3/uL (3.0-10.3)
[2025-04-21 06:56] LABS: ALANINE AMINOTRANSFERASE,ALT 28 U/L (12-36); ASPARTATE AMNIOTRANSFERASE,AST 24 IU/L (5-25); BILIRUBIN DIRECT 0.15 mg/dL (0.10-0.20); BILIRUBIN TOTAL 0.4 mg/dL (0.1-1.3); BLOOD UREA NITROGEN,BUN 32 mg/dL (7-18); CARBON DIOXIDE,CO2 25 mmol/L (21-32); CHLORIDE,CL 105 mmol/L (100-110); CREATININE 1.7 mg/dL (0.55-1.02); EST CRCL DRUG DOSING (CG) 26.59 mL/min; ESTIMATED GFR 32 mL/min (>60); GLUCOSE RANDOM 101 mg/dL (80-116); POTASSIUM,K 4.8 mmol/L (3.5-5.3); PROTEIN TOTAL,TP 6.7 g/dL (6.0-8.0); SODIUM,NA 139 mmol/L (135-145)
[2025-04-21 07:26] LABS: RED BLOOD CELL COUNT 2.95 x10(6)uL (3.60-5.20)
[2025-04-21] MEDS ORDERED: Non-Formulary Medication 1 Each (Omeprazole [Omeprazole] 20 MG Cap.Cr) PO SCH (08:00)
[2025-04-21] MEDS: Meropenem 500 MG SDV IV SCH (14:06)
[2025-04-22 06:44] LABS: BASOPHILS ABSOLUTE AUTO 0.1 x10-3/uL (0.0-0.1); BASOPHILS PERCENT AUTO 0.6 % (0.2-1.5); EOSINOPHILS ABSOLUTE AUTO 0.5 x10-3/uL (0.0-0.8); EOSINOPHILS PERCENT AUTO 4.8 % (0.6-8.1); LYMPHOCYTES ABSOLUTE AUTO 1.7 x10-3/uL (1.0-4.4); LYMPHOCYTES PERCENT AUTO 15.8 % (18.4-52.1); MEAN PLATELET VOLUME 6.8 fL (7.1-12.4); MONOCYTES ABSOLUTE AUTO 1.0 x10-3/uL (0.3-1.0); MONOCYTES PERCENT AUTO 9.0 % (4.4-15.7); NEUTROPHILS ABSOLUTE AUTO 7.6 x10-3/uL (1.5-6.3); NEUTROPHILS PERCENT AUTO 69.8 % (30.8-76.2); PLATELET COUNT,PLT 180 x10(3)uL (151-488); RED CELL DISTRIBUTION WIDTH 16.9 % (12.3-16.5); WHITE BLOOD CELL COUNT,WBC 10.9 x10-3/uL (3.0-10.3)
[2025-04-22 06:50] LABS: BLOOD UREA NITROGEN,BUN 30 mg/dL (7-18); CARBON DIOXIDE,CO2 25 mmol/L (21-32); CHLORIDE,CL 106 mmol/L (100-110); CREATININE 1.7 mg/dL (0.55-1.02); EST CRCL DRUG DOSING (CG) 26.59 mL/min; ESTIMATED GFR 32 mL/min (>60); GLUCOSE RANDOM 117 mg/dL (80-116); POTASSIUM,K 4.8 mmol/L (3.5-5.3); SODIUM,NA 140 mmol/L (135-145)
[2025-04-22 07:06] LABS: RED BLOOD CELL COUNT 3.02 x10(6)uL (3.60-5.20)
[2025-04-22] MEDS: guaiFENesin/Dextromethorphan 100-10 MG/5 ML Soln 5 ML Cup PO PRN (09:50)
[2025-04-22 16:25] LABS: STREPTOCOCCUS PNEUMONIAE AG,UR Negative (Negative)
[2025-04-23 00:15] LABS: LEGIONELLA PNEUMOPHILA AG,URN Negative (Negative)
[2025-04-24 06:26] LABS: BASOPHILS ABSOLUTE AUTO 0.1 x10-3/uL (0.0-0.1); BASOPHILS PERCENT AUTO 0.7 % (0.2-1.5); EOSINOPHILS ABSOLUTE AUTO 0.3 x10-3/uL (0.0-0.8); EOSINOPHILS PERCENT AUTO 3.3 % (0.6-8.1); LYMPHOCYTES ABSOLUTE AUTO 2.0 x10-3/uL (1.0-4.4); LYMPHOCYTES PERCENT AUTO 19.0 % (18.4-52.1); MEAN PLATELET VOLUME 6.7 fL (7.1-12.4); MONOCYTES ABSOLUTE AUTO 0.6 x10-3/uL (0.3-1.0); MONOCYTES PERCENT AUTO 6.0 % (4.4-15.7); NEUTROPHILS ABSOLUTE AUTO 7.5 x10-3/uL (1.5-6.3); NEUTROPHILS PERCENT AUTO 71.0 % (30.8-76.2); PLATELET COUNT,PLT 211 x10(3)uL (151-488); RED CELL DISTRIBUTION WIDTH 17.1 % (12.3-16.5); WHITE BLOOD CELL COUNT,WBC 10.5 x10-3/uL (3.0-10.3)
[2025-04-24 06:31] LABS: BLOOD UREA NITROGEN,BUN 29 mg/dL (7-18); CARBON DIOXIDE,CO2 27 mmol/L (21-32); CHLORIDE,CL 104 mmol/L (100-110); CREATININE 1.6 mg/dL (0.55-1.02); EST CRCL DRUG DOSING (CG) 28.25 mL/min; ESTIMATED GFR 34 mL/min (>60); GLUCOSE RANDOM 111 mg/dL (80-116); POTASSIUM,K 5.1 mmol/L (3.5-5.3); SODIUM,NA 140 mmol/L (135-145)
[2025-04-24 06:47] LABS: RED BLOOD CELL COUNT 3.28 x10(6)uL (3.60-5.20)
[2025-04-24 11:33] VITALS: BP 115/64; PULSE 74
== END 2025-04-24 10:30 | disposition home or self-care (01) | DRG 689 ==
LOC: FB.ED 10:37 → EDSTATUS 11:00 → FB.MS 16:28
PROVIDERS: ADMIT Internal Medicine; ATTEND Family Medicine
DX: N39.0 Urinary tract infection, site not specified (principal); J18.9 Pneumonia, unspecified organism; F33.1 Major depressive disorder, recurrent, moderate; Z66 Do not resuscitate; N18.9 Chronic kidney disease, unspecified; R26.2 Difficulty in walking, not elsewhere classified; L89.152 Pressure ulcer of sacral region, stage 2; M54.2 Cervicalgia; H54.7 Unspecified visual loss; E78.00 Pure hypercholesterolemia, unspecified; G47.30 Sleep apnea, unspecified; K21.9 Gastro-esophageal reflux disease without esophagitis; N18.32 Chronic kidney disease, stage 3b; M19.90 Unspecified osteoarthritis, unspecified site; L89.159 Pressure ulcer of sacral region, unspecified stage; E66.9 Obesity, unspecified; N20.0 Calculus of kidney; M54.9 Dorsalgia, unspecified; G89.29 Other chronic pain; F41.9 Anxiety disorder, unspecified; E03.9 Hypothyroidism, unspecified; Z68.29 Body mass index [BMI] 29.0-29.9, adult; Z86.73 Personal history of transient ischemic attack (TIA), and cerebral infarction without residual deficits; Z95.5 Presence of coronary angioplasty implant and graft; Z90.49 Acquired absence of other specified parts of digestive tract; Z88.8 Allergy status to other drugs, medicaments and biological substances; Z79.899 Other long term (current) drug therapy; Z79.52 Long term (current) use of systemic steroids; Z98.890 Other specified postprocedural states; Z98.51 Tubal ligation status
CPT/HCPCS: 36410; 36415; 51702; 71046; 74176; 74176-26; 80048; 80053; 80076; 80164; 80165; 81001; 83605; 85025; 86140; 87040; 87086; 87428-QW; 87449; 87899; 94150; 94640; 96365; 97161-GP; 97165-GO; 99223; 99232; 99239; 99285; 99285-25; A9270-GY; J1271; J1650; J2185